=== PATIENT | female | born 1970 | race Caucasian/White ===

== ENCOUNTER 2018-01-07 16:06 | Emergency (ER) | payer MEDICARE, MEDICAID, SELFPAY ==
[2018-01-07 16:10] VITALS: BP 125/91; PULSE 89; RESP 16; TEMP 36.5; O2SAT 93
--- NOTE | 2018-01-07 16:28 | W.ED.GENAD ---
Discharge Plan Discharge Details Chief Complaint: EarProblem Clinical Impression: Actinic otitis externa of left ear Reason For Visit: LFT EAR Primary Care Provider: Thanh Rebolledo ED Provider: Cassius Still Disposition Patient Disposition: HOME Condition: Good Home Meds and New Rx's Prescriptions: Continue albuterol sulfate [Ventolin HFA] 8 GM HFA aerosol inhaler 2 puff Inhalation Q4H PRN RF: 0 norethindrone ac-eth estradiol 1 EACH tablet 1 ea PO HS RF: 0 ranitidine HCl 150 MG capsule 150 mg PO HS RF: 0 misc 1 ea UD DAILY Qty: 1 RF: 0 prochlorperazine maleate 5 MG tablet 5 mg PO Q8H PRN Qty: 30 RF: 0 cholecalciferol (vitamin D3) [Vitamin D3] 2,000 UNIT capsule 5,000 unit PO DAILY RF: 0 riboflavin (vitamin B2) [Vitamin B-2] 25 MG tablet 100 mg PO DAILY RF: 0 cyanocobalamin (vitamin B-12) [Vitamin B-12] 1,000 MCG tablet 1,000 mcg PO DAILY RF: 0 metformin [Glucophage] 1,000 MG tablet 1,000 mg PO BID RF: 0 chlorthalidone 25 MG tablet 25 mg PO DAILY RF: 0 amlodipine 5 MG tablet 5 mg PO HS RF: 0 Discharge Instructions Instructions: Otitis Externa (ED) Additional Instructions: Follow-up with regular doctor if not improved in 5 days time. Take Ciprodex drops twice daily for 7 days. Return for any acute concerns Medical Decision Making MDM Narrative Medical decision making narrative: 47-year-old female with evidence of left otitis externa. Will treat with Ciprodex drops twice daily for 7 days. Discussed with her home management as well as return precautions. She will follow-up with regular doctor if not improved in 5-7 days time Left ear pain: This is a 47-year-old female with 3 days of dull, achy, mild to moderate left ear pain is constant, worse with pressure on the external ear canal. She has not had fever, sore throat, sniffles, sneezes or cough. She has otherwise been well. Pain is nonradiating and without significant alleviating factors HPI - General Adult General Date/Time Provider Initiated Documentation: 01/07/18 16:09. Related Data Home Medications Medication Instructions Recorded Confirmed albuterol sulfate [Ventolin HFA] 2 puff INHALATION Q4H PRN puff 11/05/12 01/07/18 cholecalciferol (vitamin D3) 5,000 unit PO DAILY 07/08/14 01/07/18 [Vitamin D3] cyanocobalamin (vitamin B-12) 1,000 mcg PO DAILY 07/08/14 01/07/18 [Vitamin B-12] riboflavin (vitamin B2) [Vitamin 100 mg PO DAILY 07/08/14 01/07/18 B-2] norethindrone ac-eth estradiol 1 ea PO HS 11/16/16 01/07/18 ranitidine HCl 150 mg PO HS tab-cap 11/16/16 01/07/18 metformin [Glucophage] 1,000 mg PO BID 04/02/17 01/07/18 amlodipine 5 mg PO HS 05/10/17 01/07/18 chlorthalidone 25 mg PO DAILY 05/10/17 01/07/18 Allergies Allergy/AdvReac Type Severity Reaction Status Date / Time codeine AdvReac Mild NAUSEA/VOMI Unverified 01/07/18 16:17 TING General Stated Complaint: EarProblem TATIANNA: 5 Review of Systems Review of Systems 6 systems reviewed and otherwise negative PFSH Family History Other Cancer Diabetes Essential hypertension Medical History Anxiety Carpal tunnel syndrome Depression ITP (idiopathic thrombocytopenic purpura) MS (multiple sclerosis) Migraine Morbid obesity with BMI of 60.0-69.9, adult Obstructive sleep apnea Thrombocytopenia Vitamin D deficiency Social History Smoking/Tobacco Use Status: Former Tobacco Use Surgical History section Exam Const General: cooperative, healthy appearing and well developed [facility] Head: normal to inspection and normocephalic Ears: hearing grossly normal bilaterally and external ears abnormal (Left external ear canal with cobblestoning and appears to be small pimple at the superior aspect. Wax present but able to visualize the tympanic membrane.) Eyes General: appearance normal, both eyes and all related structures Resp Effort & Inspection: normal respiratory effort and able to speak in complete sentences Auscultation: clear to auscultation bilaterally Cardio Rate: regular rate Rhythm: regular rhythm Skin General skin exam: no rashes or lesions noted Psych Appearance: grossly normal Speech and Movement: speech and movement normal Course Vital Signs Temperature 36.5 C 01/07/18 16:10 Pulse 89 01/07/18 16:10 Respiratory Rate 16 01/07/18 16:10 Blood Pressure 125/91 H 01/07/18 16:10 Pulse Oximetry 93 L 01/07/18 16:10 Temperature 36.5 C 01/07/18 16:10 Pulse 89 01/07/18 16:10 Respiratory Rate 16 01/07/18 16:10 Blood Pressure 125/91 H 01/07/18 16:10 Pulse Oximetry 93 L 01/07/18 16:10
== END 2018-01-07 16:50 | disposition home or self-care (01) ==
LOC: ER 16:42
PROVIDERS: Emergency Provider Emergency Medicine; PCP Family Medicine
DX: H60.512 Acute actinic otitis externa, left ear (principal); E11.9 Type 2 diabetes mellitus without complications; Z79.84 Long term (current) use of oral hypoglycemic drugs; I10 Essential (primary) hypertension
CPT/HCPCS: 99283

== ENCOUNTER 2018-02-22 09:31 | Outpatient (CLI) | payer MEDICARE, MEDICAID, SELFPAY ==
[2018-02-22 10:08] LABS: Hemoglobin A1C 5.4 % (4.5-6.2)
== END 2018-02-22 09:51 ==
PROVIDERS: PCP Family Medicine; Visit Provider Family Medicine
DX: E11.9 Type 2 diabetes mellitus without complications (principal)
CPT/HCPCS: 36415; 83036

== ENCOUNTER 2018-06-25 17:19 | Outpatient (REF) | payer MEDICARE, MEDICAID, SELFPAY ==
[2018-06-25 20:26] LABS: HCT 44.5 % (36.0-46.0); HGB 14.6 g/dL (12.0-15.5); Mean Corp. HGB Concentration 32.8 g/dL (32.0-36.0); Mean Corpuscular Volume 82.3 fL (80-95); RBC 5.41 m/cumm (4.00-5.20); RBC Distribution Width 14.3 % (11.7-14.6)
[2018-06-25 20:43] LABS: COMMENT (LAB VIEW ONLY) 47.26 mg/dL; Microalb ug/mg Crea 13.1 ug/mg Cr
[2018-06-25 20:48] LABS: Anion Gap 11.9 mmol/L (3-11); BUN 16 mg/dL (7-18); CO2 27.1 mmol/L (21.0-32.0); CREATININE 0.89 mg/dL (0.55-1.02); Calcium 9.4 mg/dL (8.5-10.1); Chloride 104 mmol/L (98-107); FREE T4 1.02 ng/dL (0.76-1.46); Glucose 81 mg/dL (70-100); Potassium 3.8 mmol/L (3.5-5.1); Sodium 143 mmol/L (136-145); TSH (W/Ref FT4) 1.06 uIU/mL (0.358-3.74)
[2018-06-25 21:12] LABS: Platelet Count 108 x1000/uL (130-400)
== END 2018-06-25 17:39 ==
LOC: NCHCN 17:19
PROVIDERS: PCP Family Medicine; Visit Provider Family Medicine
DX: E11.9 Type 2 diabetes mellitus without complications (principal); R68.89 Other general symptoms and signs; I10 Essential (primary) hypertension; E21.3 Hyperparathyroidism, unspecified
CPT/HCPCS: 80048; 85027; 82043; 82570; 84439; 84443

== ENCOUNTER 2018-07-03 11:29 | Outpatient (CLI) | payer MEDICARE, MEDICAID, SELFPAY ==
[2018-07-03 12:45] LABS: Albumin 3.9 g/dL (3.4-5.0); Calcium 9.6 mg/dL (8.5-10.1)
[2018-07-04 11:40] LABS: Parathyroid Hormone,Intact 28 pg/ml (19-88)
[2018-07-05 05:03] LABS: Vitamin D 25 Total 78.6 ng/ml (30-100)
== END 2018-07-03 11:49 ==
PROVIDERS: PCP Family Medicine; Visit Provider Internal Medicine Endocrinology, Diabetes & Metabolism
DX: E83.52 Hypercalcemia (principal)
CPT/HCPCS: 36415; 82306; 82040; 82310; 83970

== ENCOUNTER → 2018-07-10 11:10 | Outpatient (BNVA) | payer MEDICARE, MEDICAID, SELFPAY | PROVIDERS: PCP Family Medicine; Visit Provider Psychiatry & Neurology Neurology | DX: G43.009 Migraine without aura, not intractable, without status migrainosus (principal); G35 Multiple sclerosis; E11.9 Type 2 diabetes mellitus without complications; Z79.84 Long term (current) use of oral hypoglycemic drugs | CPT/HCPCS: 99214 ==

== ENCOUNTER → 2019-01-14 09:12 | Outpatient (BNVA) | payer MEDICARE, MEDICAID, SELFPAY | PROVIDERS: PCP Family Medicine; Visit Provider Psychiatry & Neurology Neurology | DX: G43.009 Migraine without aura, not intractable, without status migrainosus (principal); G35 Multiple sclerosis; M79.671 Pain in right foot; M79.672 Pain in left foot | CPT/HCPCS: 99213 ==

== ENCOUNTER 2019-01-17 01:01 | Outpatient (CLI) | payer MEDICARE, MEDICAID, SELFPAY ==
--- NOTE | 2019-01-17 14:39 | DI.RAD_ITS ---
SYMPTOMS/DIAGNOSIS: PAIN, M79.673 RIGHT FOOT: Three views were obtained. There are small osteophytes at the sites of attachment of plantar fascia and Achilles tendon on the calcaneus. Minimal degenerative changes of the IP joints noted. No other significant bony abnormality seen. LEFT FOOT: Three views were obtained. There are small osteophytes at the sites of attachment of plantar fascia and Achilles tendon on the calcaneus. Minimal degenerative changes of the joints of the mid foot and the IP joints noted. No other bony abnormality seen.
== END 2019-01-17 01:21 ==
PROVIDERS: PCP Family Medicine; Visit Provider Family Medicine
DX: M79.671 Pain in right foot (principal); M79.672 Pain in left foot; M19.071 Primary osteoarthritis, right ankle and foot; M19.072 Primary osteoarthritis, left ankle and foot; M25.771 Osteophyte, right ankle; M25.772 Osteophyte, left ankle
CPT/HCPCS: 73630

== ENCOUNTER 2019-04-09 17:44 | Emergency (ER) | payer MEDICARE, MEDICAID, SELFPAY ==
[2019-04-09 17:47] VITALS: PULSE 110; RESP 18; TEMP 36.6; O2SAT 97
--- NOTE | 2019-04-09 17:49 | ED.GENADUL_ITS ---
Discharge Plan Disposition Patient Disposition: HOME Condition: Stable Discharge Details Chief Complaint: Allergic Clinical Impression: Drowsiness, Nausea, Medication reaction Primary Care Provider: Deepali Zuleta ED Provider: Susana Cunningham Home Meds and New Rx's Prescriptions: Continued metformin 1,000 mg tablet 1,000 mg PO BID RF: 0 albuterol sulfate [Ventolin HFA] 8 GM HFA aerosol inhaler 2 puff Inhalation Q4H PRN RF: 0 norethindrone ac-eth estradiol 1 EACH tablet 1 ea PO HS RF: 0 cholecalciferol (vitamin D3) [Vitamin D3] 2,000 UNIT capsule 5,000 unit PO DAILY RF: 0 Vitamin B-2 25 MG tablet 100 mg PO DAILY RF: 0 cyanocobalamin (vitamin B-12) [Vitamin B-12] 1,000 MCG tablet 1,000 mcg PO DAILY RF: 0 chlorthalidone 25 MG tablet 25 mg PO DAILY RF: 0 amlodipine 5 MG tablet 5 mg PO HS RF: 0 doxepin 25 mg Capsule 25 mg PO QHS RF: 0 Discontinued naltrexone 50 mg Tablet 50 mg PO DAILY RF: 0 bupropion HCl 100 mg Tablet Sustained-Release 12 Hr 100 mg PO BID RF: 0 No Action misc 1 ea UD DAILY Qty: 1 RF: 0 Discharge Instructions Instructions: Fatigue (ED) Additional Instructions: I would stop taking the naltrexone and bupropion as you have had adverse side effects today. You can also try taking only 1 of the medications tomorrow morning to see if the medicine is more tolerable. Call Dr. Zuleta's office tomorrow morning to discuss your symptoms and whether another medication could be started. Return to the emergency department if you develop any worsening or new concerning symptoms. Discharge Data Discharge Physician: Susana Cunningham Medical Decision Making 49-year-old female who started naltrexone and Wellbutrin this morning for mood and weight loss presents with nausea, facial flushing, and a feeling of like I am drunk today. Denies any other new exposures. She states she does not like this feeling and would prefer to not take these anymore. Vitals within normal limits on my exam. Afebrile. She appears nontoxic. Moving all extremities. Lungs clear. Abdomen nontender. No focal deficits. Review of these medications' adverse reactions include nausea, fatigue, somnolence, dizziness, etc. Discussed with patient that she could hold both of these medications, or decide to take only one tomorrow to see if she has similar side effects. She was given a dose of Zofran here for her nausea. She states she feels good to go home at this time. She was advised to call Dr. Zuleta' office tomorrow morning to discuss other medication choices and for reevaluation. She was advised to return here with any concerns. HPI General Mode of arrival: ambulatory . Date/Time Provider Initiated Documentation: 04/09/19 17:45 . Limitations to Documentation: no limitations . Information obtained by: patient . HPI Narrative: Pt is a 49yo F w/ a h/o obesi ty, anxiety, depression presents with nausea and drowsiness today after starting bupropion and naltrexone this morning. Patient states she took these medications for the first time early this morning and shortly afterwards has developed nausea, face feeling hot, and like I am drunk. She denies any other alcohol or drug use. She denies any other new medications. She denies fever, chest pain, shortness of breath, abdominal pain, vomiting. She states she started taking these medications for her mood and to help with weight loss which were recently prescribed by her primary care doctor Dr. Zuleta. Related Data Home Medications Medication Instructions Recorded Confirmed albuterol sulfate [Ventolin HFA] 2 puff INHALATION Q4H PRN puff 11/05/12 04/09/19 Vitamin B-2 100 mg PO DAILY 07/08/14 04/09/19 cholecalciferol (vitamin D3) 5,000 unit PO DAILY 07/08/14 04/09/19 [Vitamin D3] cyanocobalamin (vitamin B-12) 1,000 mcg PO DAILY 07/08/14 04/09/19 [Vitamin B-12] norethindrone ac-eth estradiol 1 ea PO HS 11/16/16 04/09/19 amlodipine 5 mg PO HS 05/10/17 04/09/19 chlorthalidone 25 mg PO DAILY 05/10/17 04/09/19 metformin 1,000 mg tablet 1,000 mg PO BID tab 01/14/19 04/09/19 doxepin 25 mg PO QHS 04/09/19 04/09/19 Allergies Allergy/AdvReac Type Severity Reaction Status Date / Time codeine AdvReac Mild NAUSEA/VOMI Unverified 01/14/19 09:23 TING General TATIANNA: 5 Review of Systems All systems reviewed & are unremarkable except as noted in HPI and below Constitutional Constitutional: Reports as per HPI, Denies chills and Denies fever(s) Eyes Eyes: Denies blurry vision ENT Ears, Nose, Mouth, and Throat: Denies dizziness, Denies sore throat and Denies throat swelling Cardiovascular Cardiovascular: Denies chest pain and Denies dyspnea Respiratory Respiratory: Denies cough and Denies dyspnea Gastrointestinal Gastrointestinal: Denies abdominal pain, Denies diarrhea, Reports nausea and Denies vomiting Genitourinary Genitourinary: Denies hematuria and Denies dysuria Musculoskeletal Musculoskeletal: Denies back pain and Denies numbness Integumentary/Breasts Skin/Breast: Denies lesions and Denies rash Neurologic Neurologic: Denies dizziness, Denies focal weakness and Denies numbness Allergic/Immunologic Allergic/Immunologic: Denies throat swelling [facility] Medical History Anxiety Carpal tunnel syndrome of right wrist (Acute 09/07/15) Depression Diabetes type 2, controlled (Acute) Eczema (Acute 06/10/13) Hyperparathyroidism (Acute) Primary hyperparathyroidism with an intrathyroidal parathyroid adenoma. ITP (idiopathic thrombocytopenic purpura) Migraine without aura and without status migrainosus, not intractable (Acute 11/13/17) Morbid obesity with BMI of 60.0-69.9, adult Multiple sclerosis (Acute 11/05/12) Obstructive sleep apnea Papillary thyroid carcinoma (Acute) Papillary thyroid cancer, found Jun 2017. Monitored by [facility] Endo with yearly US. Vitamin D deficiency Surgical History S/P section (Acute) S/P partial thyroidectomy (Acute) R partial. Jun 2017. Family History Mother Diabetes Essential hypertension Other Cancer Social History Smoking/Tobacco Use Status: Former Tobacco Use Quit Date: 11/05/16 Pack-years: 20 Alcohol Intake: never Drug use: Never Household members: spouse current occupation: Disabled. Do you feel safe at home: Yes Do you feel safe in your relationship?: Yes Exam Const General: cooperative, healthy appearing and no acute distress HENMT Head: normal to inspection Face and sinus: normal facial exam Eyes General: appearance normal, both eyes and all related structures EOM: EOM intact bilaterally Neck Neck: normal visual inspection and No submandibular swelling Lymphatic: no lymphadenopathy noted Chest Chest: normal inspection of the chest and no tenderness Resp Effort & Inspection: normal respiratory effort and able to speak in complete sentences Auscultation: clear to auscultation bilaterally Cardio Rate: regular rate Rhythm: regular rhythm GI Inspection: normal to inspection Palpation: soft, not firm, not rigid and nontender Auscultation: normal bowel sounds Skin General skin exam: no rashes or lesions noted Neuro General: alert, awake and oriented x3 Cognition: normal cognition Speech: speech normal Motor: muscle tone normal throughout Sensory Exam: no sensory deficits noted Extrem General: normal to inspection, full ROM, normal capillary refill, no calf tenderness bilaterally and no edema Psych Appearance: grossly normal Mental Status: mental status grossly normal Speech and Movement: speech and movement normal Affect: normal affect
[2019-04-09 18:04] VITALS: PULSE 94; RESP 22; O2SAT 98
[2019-04-09 18:10] VITALS: PULSE 92; RESP 22; O2SAT 97
[2019-04-09 18:20] VITALS: PULSE 91; RESP 20; O2SAT 97
[2019-04-09 18:30] VITALS: PULSE 89; RESP 21; O2SAT 97
[2019-04-09] MEDS: Ondansetron O.D.T. 4 MG TABEF PO (18:32)
== END 2019-04-09 18:40 | disposition home or self-care (01) ==
PROVIDERS: Emergency Provider Physician Assistant; PCP Family Medicine
DX: R40.0 Somnolence (principal); R11.0 Nausea; R23.2 Flushing; T43.295A Adverse effect of other antidepressants, initial encounter; T50.7X5A Adverse effect of analeptics and opioid receptor antagonists, initial encounter; F41.8 Other specified anxiety disorders; G35 Multiple sclerosis; E11.9 Type 2 diabetes mellitus without complications; Z79.84 Long term (current) use of oral hypoglycemic drugs; E66.01 Morbid (severe) obesity due to excess calories; Z68.44 Body mass index [BMI] 60.0-69.9, adult
CPT/HCPCS: 99283

== ENCOUNTER → 2019-07-15 09:36 | Outpatient (BNVA) | payer MEDICARE, MEDICAID, SELFPAY | PROVIDERS: PCP Family Medicine; Referring Provider Family Medicine; Visit Provider Psychiatry & Neurology Neurology | DX: G43.009 Migraine without aura, not intractable, without status migrainosus (principal); G35 Multiple sclerosis; M54.5 Low back pain; G89.29 Other chronic pain | CPT/HCPCS: 99213 ==

== ENCOUNTER → 2019-10-09 10:03 | Outpatient (BNVA) | payer MEDICARE, MEDICAID, SELFPAY | PROVIDERS: PCP Family Medicine; Referring Provider Family Medicine; Visit Provider Orthopaedic Surgery | DX: M75.21 Bicipital tendinitis, right shoulder (principal); E11.9 Type 2 diabetes mellitus without complications | CPT/HCPCS: 99213 ==

== ENCOUNTER 2019-11-09 19:57 | Emergency (ER) | payer MEDICARE, MEDICAID, SELFPAY ==
--- NOTE | 2019-11-09 19:58 | ED.GENADUL_ITS ---
Discharge Plan Disposition Patient Disposition: HOME Condition: Good Discharge Details Chief Complaint: RashLesion Clinical Impression: Petechial rash, Hypokalemia Primary Care Provider: Deepali Zuleta ED Provider: Angelina Guerrier Home Meds and New Rx's Prescriptions: Continued metformin 1,000 mg tablet 1,000 mg PO BID RF: 0 albuterol sulfate [Ventolin HFA] 8 GM HFA aerosol inhaler 2 puff Inhalation Q4H PRN RF: 0 norethindrone ac-eth estradiol 1 EACH tablet 1 ea PO HS RF: 0 misc 1 ea UD DAILY Qty: 1 RF: 0 cholecalciferol (vitamin D3) [Vitamin D3] 2,000 UNIT capsule 5,000 unit PO DAILY RF: 0 Vitamin B-2 25 MG tablet 100 mg PO DAILY RF: 0 cyanocobalamin (vitamin B-12) [Vitamin B-12] 1,000 MCG tablet 1,000 mcg PO DAILY RF: 0 chlorthalidone 25 MG tablet 25 mg PO DAILY RF: 0 amlodipine 5 MG tablet 5 mg PO HS RF: 0 amitriptyline 10 mg tablet 10 mg PO HS MDD 20 MG RF: 0 Discharge Instructions Instructions: Hypokalemia (ED), Purpura (ED) Additional Instructions: No rash is most concerning for petechial rash. This typically goes along with liver dysfunction. However, your labs actually look surprisingly good. You continue to have an elevated white count as we discussed with this is downtr ending. Is not consistent with an allergic reaction. Please continue with your medications as previously prescribed. Please follow-up with primary care next week for reevaluation. If you develop fever/chills, pain, spreading of the rash, difficulty breathing or other new/worsening symptom please seek care urgently once again. Please look further at your footwear as this may be associated with pressure applied to the top of your foot. Referrals: Deepali Zuleta MD [Primary Care Provider] - Medical Decision Making Patient is a 49-year-old female past medical history of chronic back pain, migraines, MS, presenting today for rash of bilateral dorsal feet. She reports noticing this when she was getting ready for bed tonight. She took her pressures and saw rash. Denies any trauma. States that she is wearing wearing a loose pair of sneakers since then. No rash elsewhere. States that she did begin amitriptyline few days ago and is concerned this may be a sign of reaction. Denies any shortness of breath, wheezing, itching. No GI change. On exam, patient appears nontoxic. She has an obese female. She is noted to be slightly tachycardic at 107 and hypertensive with a blood pressure 169/98. She has a non-blanchable petechial rash and very isolated area on the bilateral dorsal feet. This appears more consistent with pressure applied over this area. However, I did review the potential adverse reactions of amitr iptyline and liver dysfunction is in the list. While 3 days would be fairly quick for onset, I do feel that screening baseline labs given the petechial rash would be appropriate. Discussed this plan with the patient who is in agreement. I not see any evidence of allergic reaction, says not consistent urticarial rash. She is appearing otherwise well. No jaundice. Labs reviewed. Patient has leukocytosis with a white count of 13. This is downtrending from 14.8 last month. Patient's platelet count is low at 104 but this is baseline for her. Her potassium is low at 3.2, will replenish this orally. No abnormalities on coags or liver function testing. Discussed these findings with the patient. Advised that her rash at this point is more consistent with pressure being applied to this area. It is not consistent with allergic reaction which is patient's primary concern. I advised that she continue with medications as previously prescribed. I did advise follow-up with primary care next week for reevaluation. She was given return precautions. All of her questions and concerns were addressed and she is in agreement this plan. [facility] General Mode of arrival: ambulatory . Date/Time Provider Initiated Documentation: 11/09/19 19:58 . Limitations to Documentation: no limitations . Information obtained by: patient and RN notes reviewed . History of Present Illness 49 year old F presents to the emergency department with the chief complaint of rash to bilateral feet, described as mild, Quality is described as other (denies any sensation associated with the rash), and is localized to the left, right and lower extremity. Patient reports no radiation. Patient started experiencing this minute(s) (noticed when getting ready for bed this evening) and it has been constant. No relieving factors improve symptom(s), No exacerbating factors reported . Patient notes no other symptoms.. Patient did receive the following treatments prior to arrival, none Related Data Home Medications Medication Instructions Recorded Confirmed albuterol sulfate [Ventolin HFA] 2 puff INHALATION Q4H PRN puff 11/05/12 11/09/19 Vitamin B-2 100 mg PO DAILY 07/08/14 11/09/19 cholecalciferol (vitamin D3) 5,000 unit PO DAILY 07/08/14 11/09/19 [Vitamin D3] cyanocobalamin (vitamin B-12) 1,000 mcg PO DAILY 07/08/14 11/09/19 [Vitamin B-12] norethindrone ac-eth estradiol 1 ea PO HS 11/16/16 11/09/19 amlodipine 5 mg PO HS 05/10/17 11/09/19 chlorthalidone 25 mg PO DAILY 05/10/17 11/09/19 metformin 1,000 mg tablet 1,000 mg PO BID tab 01/14/19 11/09/19 amitriptyline 10 mg PO HS MDD 20 MG 11/09/19 11/09/19 Allergies Allergy/AdvReac Type Severity Reaction Status Date / Time codeine AdvReac Mild NAUSEA/VOMI Unverified 11/09/19 20:01 TING General TATIANNA: 3 Review of Systems Constitutional Constitutional: Reports as per HPI, Denies chills and Denies fever(s) Musculoskeletal Musculoskeletal: Reports as per HPI Integumentary/Breasts Skin/Breast: Reports as per HPI Neurologic Neurologic: Reports as per HPI, Denies sensory deficit and Denies paresthesias [facility] Medical History Anxiety Biceps tendinitis of right upper extremity (Acute) Carpal tunnel syndrome of right wrist (Acute 09/07/15) Chronic low back pain (Acute) Depression Diabetes type 2, controlled (Acute) Eczema (Acute 06/10/13) Hyperparathyroidism (Acute) Primary hyperparathyroidism with an intrathyroidal parathyroid adenoma. ITP (idiopathic thrombocytopenic purpura) Migraine without aura and without status migrainosus, not intractable (Acute 11/13/17) Morbid obesity with BMI of 60.0-69.9, adult Multiple sclerosis (Acute 11/05/12) Obstructive sleep apnea Papillary thyroid carcinoma (Acute) Papillary thyroid cancer, found Jun 2017. Monitored by [facility] Endo with yearly US. Vitamin D deficiency Surgical History S/P section (Acute) S/P partial thyroidectomy (Acute) R partial. Jun 2017. Social History Smoking/Tobacco Use Status: Former Tobacco Use Quit Date: 11/05/16 Pack-years: 20 Alcohol Intake: never Drug use: Never Household members: spouse current occupation: Disabled. Current gender identity: male Do you feel safe at home: Yes Do you feel safe in your relationship?: Yes Exam Const General: cooperative, healthy appearing, comfortable, no acute distress and well developed Nutritional Appearance: well nourished and obese Orientation: alert and awake Resp Effort & Inspection: normal respiratory effort, able to speak in complete sentences and no respiratory distress Cardio Rate: regular rate Rhythm: regular rhythm Skin Rashes: rashes noted (bilateral lower feet) Neuro General: patient alert and patient awake Cognition: normal cognition Speech: speech normal Gait: normal gait Sensory Exam: no sensory deficits noted Extrem Ankle/foot/toe images: 1. 2. Bilateral petechial rash no very isolated area in the dorsal aspect of bilateral feet. This is non-blanchable. It is not raised. Nontender. Brisk capillary refill. Psych Appearance: grossly normal and well kempt Mental Status: mental status grossly normal Speech and Movement: speech and movement normal
[2019-11-09 20:05] VITALS: BP 169/98; PULSE 107; RESP 20; TEMP 37.3; O2SAT 97
[2019-11-09 21:05] LABS: HCT 43.7 % (36.0-46.0); HGB 14.4 g/dL (12.0-15.5); Mean Corpuscular Hemoglobin 26.9 pg (27.0-33.0); Mean Corpuscular Volume 81.7 fL (80-95); Mean Platelet Volume 13.3 fL (8.0-11.0); Platelet Count 104 x1000/uL (130-400); RBC 5.35 m/cumm (4.00-5.20); RBC Distribution Width 14.1 % (11.7-14.6); White Blood Cell Count 13.21 k/cumm (4.4-10.8)
[2019-11-09 21:17] LABS: PTT Activated 24.8 sec (21.0-31.4); Prothrombin Time 9.8 sec (9.3-11.0)
[2019-11-09 21:19] LABS: ALT 19 U/L (14-59); AST 10 U/L (15-37); Albumin 3.5 g/dL (3.4-5.0); Alkaline Phosphatase 85 U/L (46-116); BUN 11 mg/dL (7-18); Bilirubin, Total 0.2 mg/dL (0.2-1.0); CREATININE 1.02 mg/dL (0.55-1.02); Calcium 9.1 mg/dL (8.5-10.1); Chloride 103 mmol/L (98-107); Estimated GFR 57.84 (mL/min/1.73m2); Glucose 124 mg/dL (74-106); Potassium 3.2 mmol/L (3.5-5.1); Sodium 140 mmol/L (136-145); Total Protein 7.9 g/dL (6.4-8.2)
[2019-11-09] MEDS: POTASSIUM CHLORIDE 20 MEQ, POTASSIUM CHLORIDE 10 MEQ 30 MEQ PO (21:40)
== END 2019-11-09 21:45 | disposition home or self-care (01) ==
PROVIDERS: Emergency Provider Physician Assistant; PCP Family Medicine
DX: R42 Dizziness and giddiness (principal); E87.6 Hypokalemia; E11.9 Type 2 diabetes mellitus without complications; Z79.84 Long term (current) use of oral hypoglycemic drugs; G35 Multiple sclerosis; D69.3 Immune thrombocytopenic purpura
CPT/HCPCS: 36415; 80053; 85027; 99283; 85610; 85730

== ENCOUNTER → 2019-11-27 08:47 | Outpatient (BNVA) | payer MEDICARE, MEDICAID, SELFPAY | PROVIDERS: PCP Family Medicine; Referring Provider Family Medicine; Visit Provider Orthopaedic Surgery | DX: M75.21 Bicipital tendinitis, right shoulder (principal); E66.01 Morbid (severe) obesity due to excess calories; Z68.44 Body mass index [BMI] 60.0-69.9, adult | CPT/HCPCS: 99213 ==

== ENCOUNTER 2019-11-27 21:42 | Outpatient (REF) | payer MEDICARE, MEDICAID, SELFPAY ==
[2019-11-27 20:51] LABS: Abs Immature Grans 0.05 k/cumm (0.0-0.09); Absolute Eosinophil Count 0.14 k/cumm (0.0-0.7); Absolute Lymphocyte Count 1.68 k/cumm (1.2-3.4); Absolute Monocyte Count 0.74 k/cumm (0.11-0.7); Basophils % 0.1; HCT 42.4 % (36.0-46.0); Immature Grans % 0.4 %; Lymphocytes % 11.8; Mean Corpuscular Hemoglobin 26.7 pg (27.0-33.0); Mean Corpuscular Volume 80.8 fL (80-95); Monocytes % 5.2; Neutrophils % 81.5; RBC 5.25 m/cumm (4.00-5.20); RBC Distribution Width 14.1 % (11.7-14.6); White Blood Cell Count 14.27 k/cumm (4.4-10.8)
[2019-11-27 20:58] LABS: Anion Gap 13.3 mmol/L (3-11); BUN 15 mg/dL (7-18); CO2 23.7 mmol/L (21.0-32.0); CREATININE 0.83 mg/dL (0.55-1.02); Calcium 9.2 mg/dL (8.5-10.1); Chloride 104 mmol/L (98-107); Glucose 126 mg/dL (74-106); Potassium 3.6 mmol/L (3.5-5.1); Sodium 141 mmol/L (136-145)
[2019-11-27 21:09] LABS: Absolute Basophil Count 0.01 k/cumm (0.0-0.2); Absolute Neutrophil Count 11.63 k/cumm (1.2-6.7)
[2019-11-27 21:10] LABS: Mean Platelet Volume 15.6 fL (8.0-11.0)
[2019-11-27 21:12] LABS: Platelet Count 102 x1000/uL (130-400)
== END 2019-11-27 22:02 ==
LOC: NCHCN 21:42
PROVIDERS: PCP Family Medicine; Visit Provider Family Medicine
DX: E87.6 Hypokalemia (principal); D72.829 Elevated white blood cell count, unspecified
CPT/HCPCS: 80048; 85025

== ENCOUNTER → 2020-01-08 08:54 | Outpatient (BNVA) | payer MEDICARE, MEDICAID, SELFPAY | PROVIDERS: PCP Family Medicine; Visit Provider Orthopaedic Surgery | DX: M75.21 Bicipital tendinitis, right shoulder (principal); E11.9 Type 2 diabetes mellitus without complications | CPT/HCPCS: 99213 ==

== ENCOUNTER 2020-01-09 01:02 | Outpatient (CLI) | payer MEDICARE, MEDICAID, SELFPAY ==
--- NOTE | 2020-01-09 | DI.US_ITS ---
EXAM: US LOWER EXTREMITY VENOUS RT CLINICAL HISTORY: CALF PAIN RT, M79.661, OBESITY, SEDENTARY DUE TO KNEE PAIN, HIGH RISK FOR TECHNIQUE: Right lower extremity venous ultrasound performed using grayscale, color-flow, and spectr al Doppler analysis. COMPARISON: No exams were available for comparison FINDINGS: The right common femoral, femoral and popliteal veins demonstrate normal compressibility, augmentatio n, and color Doppler. The posterior tibial veins are patent. The saphenofemoral junction is unremark able. There is no evidence of a Rose cyst. The soft tissues are unremarkable. IMPRESSION: No DVT. DATA REPOSITORY:
== END 2020-01-09 01:22 ==
PROVIDERS: PCP Family Medicine; Visit Provider Family Medicine
DX: M79.661 Pain in right lower leg (principal)
CPT/HCPCS: 93971

== ENCOUNTER → 2020-01-14 08:30 | Outpatient (BNVA) | payer MEDICARE, MEDICAID, SELFPAY | PROVIDERS: PCP Family Medicine; Referring Provider Family Medicine; Visit Provider Psychiatry & Neurology Neurology | DX: G43.009 Migraine without aura, not intractable, without status migrainosus (principal); M54.5 Low back pain; G89.29 Other chronic pain; G35 Multiple sclerosis; E66.01 Morbid (severe) obesity due to excess calories; Z68.44 Body mass index [BMI] 60.0-69.9, adult; E11.9 Type 2 diabetes mellitus without complications | CPT/HCPCS: 99213 ==

== ENCOUNTER → 2020-02-19 08:54 | Outpatient (BNVA) | payer MEDICARE, MEDICAID, SELFPAY | PROVIDERS: PCP Family Medicine; Visit Provider Orthopaedic Surgery | DX: M75.21 Bicipital tendinitis, right shoulder (principal); E11.9 Type 2 diabetes mellitus without complications; Z79.84 Long term (current) use of oral hypoglycemic drugs | CPT/HCPCS: 99213 ==

== ENCOUNTER → 2020-03-18 09:09 | Outpatient (BNVA) | payer MEDICARE, MEDICAID, SELFPAY | PROVIDERS: PCP Family Medicine; Referring Provider Family Medicine; Visit Provider Orthopaedic Surgery | DX: M75.21 Bicipital tendinitis, right shoulder (principal); E11.9 Type 2 diabetes mellitus without complications; Z79.84 Long term (current) use of oral hypoglycemic drugs | CPT/HCPCS: 99212 ==

== ENCOUNTER 2020-04-08 16:03 | Outpatient (REF) | payer MEDICARE, MEDICAID, SELFPAY ==
[2020-04-11 09:17] LABS: COVID-19 RT-PCR UVMMC Result Negative (Negative)
== END 2020-04-08 16:23 ==
LOC: NCHCN 16:03
PROVIDERS: PCP Family Medicine; Visit Provider Physician Assistant
DX: Z20.828 Contact with and (suspected) exposure to other viral communicable diseases (principal)
CPT/HCPCS: U0003

== ENCOUNTER 2020-04-16 08:01 | Outpatient (REF) | payer MEDICARE, MEDICAID, SELFPAY ==
[2020-04-16 19:07] LABS: Hemoglobin A1C 5.7 % (<5.7)
[2020-04-16 19:10] LABS: Anion Gap 11.5 mmol/L (3-11); BUN 16 mg/dL (7-18); CO2 23.5 mmol/L (21.0-32.0); CREATININE 0.97 mg/dL (0.55-1.02); Calcium 9.1 mg/dL (8.5-10.1); Chloride 104 mmol/L (98-107); Glucose 117 mg/dL (74-106); Potassium 3.7 mmol/L (3.5-5.1); Sodium 139 mmol/L (136-145)
[2020-04-16 20:06] LABS: Vitamin D 25 Total 52.6 ng/ml (30-100)
== END 2020-04-16 08:21 ==
LOC: NCHCN 08:01
PROVIDERS: PCP Family Medicine; Visit Provider Family Medicine
DX: E87.6 Hypokalemia (principal); R73.03 Prediabetes; E55.9 Vitamin D deficiency, unspecified
CPT/HCPCS: 80048; 82306; 83036

== ENCOUNTER 2020-05-07 12:45 | Outpatient (REF) | payer MEDICARE, MEDICAID, SELFPAY ==
[2020-05-07 14:52] LABS: Vitamin B12 479 pg/mL (193-986)
== END 2020-05-07 13:05 ==
LOC: NCHCN 12:45
PROVIDERS: PCP Family Medicine; Visit Provider Family Medicine
DX: E53.8 Deficiency of other specified B group vitamins (principal)
CPT/HCPCS: 82607

== ENCOUNTER → 2020-08-12 07:40 | Outpatient (BNVA) | payer MEDICARE, MEDICAID, SELFPAY | PROVIDERS: PCP Family Medicine; Referring Provider Family Medicine; Visit Provider Psychiatry & Neurology Neurology | DX: G35 Multiple sclerosis (principal); G43.009 Migraine without aura, not intractable, without status migrainosus; M54.5 Low back pain; G89.29 Other chronic pain | CPT/HCPCS: 99442 ==

== ENCOUNTER 2020-11-11 11:14 | Outpatient (REF) | payer MEDICARE, MEDICAID, SELFPAY ==
--- NOTE | 2020-11-11 10:15 | PAPFT_PTH ---
PATIENT: Kat Vanegas LOC: [facility] U#:[id number] AGE/SX: 50/F ROOM: RE11/11/[address]: Mary Moody DO : 1970 BED: DIS: 11/11/2020 SPEC #: [id number] RECD: 11/11/20 11:22 STATUS: SAVANAH REQ #: [id number] LYNDA: 11/11/20 10:[address]: Mary Moody DEPT: [facility] Cytology RECD BY: Lalita Rivero ENTERED: 11/11/20 11:23 SP TYPE: PAPFT OTHR DR: Deepali Zuleta Tissues: 1 - CX/ENDOCX FOR PAP SMEARS Procedures: PAP THIN PREP/UVM Screening HPV DNA PROBE Comments: [id number]
== END 2020-11-11 11:15 | disposition home or self-care (01) ==
LOC: LBN 11:14
PROVIDERS: PCP Family Medicine; Visit Provider Obstetrics & Gynecology
DX: Z12.4 Encounter for screening for malignant neoplasm of cervix (principal); Z11.51 Encounter for screening for human papillomavirus (HPV); Z01.419 Encounter for gynecological examination (general) (routine) without abnormal findings
CPT/HCPCS: 88142; 87624

== ENCOUNTER → 2020-11-19 09:28 | Outpatient (BNVA) | payer MEDICARE, MEDICAID, SELFPAY | PROVIDERS: PCP Family Medicine; Referring Provider Family Medicine; Visit Provider Student in an Organized Health Care Education/Training Program | DX: M25.561 Pain in right knee (principal); D69.6 Thrombocytopenia, unspecified; M17.11 Unilateral primary osteoarthritis, right knee; E11.9 Type 2 diabetes mellitus without complications | CPT/HCPCS: 99214 ==

== ENCOUNTER 2020-11-19 09:54 | Outpatient (CLI) | payer MEDICARE, MEDICAID, SELFPAY ==
--- NOTE | 2020-11-19 09:45 | DI.RAD_ITS ---
Exam(s) XR KNEE RT 4V AP,LAT,RUPAL,PAT EXAM: XR KNEE RT 4V AP,LAT,RUPAL,PAT CLINICAL HISTORY: rt knee pain. TECHNIQUE: 2D digital imaging was performed. COMPARISON: CR RIGHT KNEE LIMITED 1 OR 2 VIEW from 05/30/2017 FINDINGS: There has been significant progression of degenerative change in the right knee when compared to 2018 . Presently there is significant narrowing of the medial compartment evident as well as marginal ost eophytes. Lateral compartment maintains normal height. Some mild degenerative changes noted in the medial aspect of the patellofemoral compartment. There appears to be a small joint effusion. No oss eous lesions. IMPRESSION: Significant progression of degenerative change when compared to May 2017. This is most prominent in the medial compartment. DATA REPOSITORY: RADIATION DOSE DELIVERED:
== END 2020-11-19 09:55 | disposition home or self-care (01) ==
LOC: DIORS 09:54
PROVIDERS: PCP Family Medicine; Referring Provider Family Medicine; Visit Provider Physician Assistant Surgical
DX: M17.11 Unilateral primary osteoarthritis, right knee (principal)
CPT/HCPCS: 99214; 73564

== ENCOUNTER 2020-12-03 04:10 | Outpatient (CLI) | payer MEDICARE, MEDICAID, SELFPAY ==
[2020-12-03 11:54] LABS: HGB 14.4 g/dL (11.2-15.7); MCH 26.9 pg (27.0-33.0); Platelet Count 141 10^3/uL (130-400); RBC 5.36 10^6/uL (3.93-5.22); RDW 14.1 % (11.7-14.6); RDW-SD 42.7 fL; WBC 13.59 10^3/uL (4.4-10.8)
== END 2020-12-03 04:11 | disposition home or self-care (01) ==
PROVIDERS: PCP Family Medicine; Visit Provider Physician Assistant Surgical
DX: D69.6 Thrombocytopenia, unspecified (principal)
CPT/HCPCS: 36415; 85027

== ENCOUNTER 2020-12-09 20:39 | Outpatient (REF) | payer MEDICARE, MEDICAID, SELFPAY ==
[2020-12-10 12:26] LABS: COVID-19 RT-PCR UVMMC Result Negative (Negative)
== END 2020-12-09 20:40 | disposition home or self-care (01) ==
LOC: NCHCN 20:39
PROVIDERS: PCP Family Medicine; Visit Provider Family Medicine
DX: Z20.822 Contact with and (suspected) exposure to COVID-19 (principal); J06.9 Acute upper respiratory infection, unspecified
CPT/HCPCS: U0003; U0005

== ENCOUNTER → 2021-02-10 14:25 | Outpatient (BNVA) | payer MEDICARE, MEDICAID, SELFPAY | PROVIDERS: PCP Family Medicine; Referring Provider Family Medicine; Visit Provider Psychiatry & Neurology Neurology | DX: G35 Multiple sclerosis (principal); G43.009 Migraine without aura, not intractable, without status migrainosus; G89.29 Other chronic pain; E11.42 Type 2 diabetes mellitus with diabetic polyneuropathy; M54.59 Other low back pain | CPT/HCPCS: 99213 ==

== ENCOUNTER → 2021-02-18 09:52 | Outpatient (BNVA) | payer MEDICARE, MEDICAID, SELFPAY | PROVIDERS: PCP Family Medicine; Visit Provider Student in an Organized Health Care Education/Training Program | DX: M17.11 Unilateral primary osteoarthritis, right knee (principal) | CPT/HCPCS: 99213 ==

== ENCOUNTER → 2021-06-28 14:26 | Outpatient (BNVA) | payer MEDICARE, MEDICAID, SELFPAY | PROVIDERS: PCP Family Medicine; Referring Provider Family Medicine; Visit Provider Psychiatry & Neurology Neurology | DX: E11.42 Type 2 diabetes mellitus with diabetic polyneuropathy (principal); G35 Multiple sclerosis; G43.009 Migraine without aura, not intractable, without status migrainosus; G89.29 Other chronic pain | CPT/HCPCS: 99215 ==

== ENCOUNTER 2021-08-03 19:36 | Emergency (ER) | payer MEDICARE, MEDICAID, SELFPAY ==
[2021-08-03] VITALS (11 sets, daily range): BP systolic 122–173; BP diastolic 61–88; PULSE 93–130; RESP 20; TEMP 37; O2SAT 91–99
--- NOTE | 2021-08-03 19:30 | DI.CT_ITS ---
Exam(s) CT ABDOMEN PELVIS W EXAM: CT ABDOMEN PELVIS W INDICATION: LLQ pain. COMPARISON: No exams were available for comparison TECHNIQUE: FINDINGS: CT examination of the abdomen and pelvis was performed with a bolus infusion of 100 cc of Omnipaque 3 50. Images obtained through the lung bases are unremarkable. The liver is unremarkable in appearance. Gallbladder and bile ducts are CT normal. Pancreas appears normal. Spleen is unremarkable in appearance. Adrenals appear normal. The kidneys are unremarkable with no evidence of hydronephrosis, nephrolithiasis, or renal mass.. Ur inary bladder unremarkable. Abdominal aorta is of normal diameter and no major vascular abnormality is seen. No abdominal wall hernia. No abdominal or pelvic adenopathy. [employer]ERK structures appear intact. Appendix is normal. There is a question of mild Sangeetha colonic fat edema adjacent to proximal sigmoid colon, question early diverticulitis. No abscess or obstruction.. IMPRESSION: Possible early diverticulitis, proximal sigmoid colon period no other significant findings.. RADIATION DOSE DELIVERED: 2,305.06mGy.cm Total DLP 2,305.06mGy.cm Total DLP !Error CTDIvol RADIATION OPTIMIZATION: All CT scans at this facility use at least one of these dose optimization te chniques: automated exposure control; mA and/or kV adjustment per patient size (includes targeted exa ms where dose is matched to clinical indication); or iterative reconstruction.
[2021-08-03] MEDS: Ondansetron 4 MG/2 ML VIAL IVP (20:03)
[2021-08-03] MEDS: HYDROmorphone 2 MG/ML VIAL 1 MG IVP (20:03)
[2021-08-03] MEDS: Normal Saline 1,000 ML 1000 ML IV (20:04)
[2021-08-03 20:06] LABS: Abs Immature Grans 0.15 10^3/uL (0.0-0.06); Absolute Neutrophil Count 12.45 10^3/uL (1.2-6.7); Basophils % 0.4; Eosinophils % 0.6; HCT 48.5 % (36.0-46.0); HGB 15.4 g/dL (11.2-15.7); Immature Grans % 0.9; Lymphocytes % 15.4; MCH 26.5 pg (27.0-33.0); MCHC 31.8 % (32.0-36.0); MCV 83.3 fL (80-95); Monocytes % 5.6; Neutrophils % 77.1; Nucleated RBC 0 %; Platelet Count 113 10^3/uL (130-400); RBC 5.82 10^6/uL (3.93-5.22); RDW 14.2 % (11.7-14.6); RDW-SD 42.8 fL; WBC 16.15 10^3/uL (4.4-10.8)
[2021-08-03 20:09] LABS: Absolute Basophil Count 0.06 10^3/uL (0.0-0.2); Absolute Lymphocyte Count 2.49 10^3/uL (1.2-3.4)
[2021-08-03 20:17] LABS: Lipase 127 U/L (73-393)
[2021-08-03 20:20] LABS: ALT 29 U/L (14-59); AST 16 U/L (15-37); Albumin 3.6 g/dL (3.4-5.0); Alkaline Phosphatase 97 U/L (46-116); Anion Gap 11.5 mmol/L (3-11); BUN 15 mg/dL (7-18); Bilirubin, Total 0.3 mg/dL (0.2-1.0); CO2 24.5 mmol/L (21.0-32.0); CREATININE 1.1 mg/dL (0.55-1.02); Calcium 9.4 mg/dL (8.5-10.1); Chloride 104 mmol/L (98-107); Estimated GFR 52.58 (mL/min/1.73m2); Glucose 152 mg/dL (74-106); Magnesium 1.7 mg/dL (1.8-2.4); Potassium 3.5 mmol/L (3.5-5.1); Sodium 140 mmol/L (136-145); Total Protein 8.6 g/dL (6.4-8.2)
[2021-08-03] MEDS: Omnipaque 350 MG/ML 100 ML BTL IJ (20:38)
[2021-08-03] MEDS: Normal Saline Flush 10 ML SYR IVP (20:40)
--- NOTE | 2021-08-03 21:29 | DI.VRAD_ITS ---
PROCEDURE INFORMATION: Exam: CT Abdomen And Pelvis With Contrast Exam date and time: 08/03/2021 8:17 PM Age: 51 years old Clinical indication: Abdominal pain; Localized; Left lower quadrant (llq); Prior surgery; Surgery date: 6+ months; Surgery type: ; Patient HX: Llq pain TECHNIQUE: Imaging protocol: Computed tomography of the abdomen and pelvis with contrast. Radiation optimization: All CT scans at this facility use at least one of these dose optimization techniques: automated exposure control; mA and/or kV adjustment per patient size (includes targeted exams where dose is matched to clinical indication); or iterative reconstruction. COMPARISON: CR PELVIS AP 05/30/2017 9:51 AM FINDINGS: Lungs: The visualized portions of the lung bases are normal. Liver: Normal. No mass. Gallbladder and bile ducts: Normal. No calcified stones. No ductal dilation. Pancreas: Normal. No ductal dilation. Spleen: Normal. No splenomegaly. Adrenal glands: Normal. No mass. Kidneys and ureters: Normal. No hydronephrosis. Stomach and bowel: See Intraperitoneal space finding. Appendix: No evidence of appendicitis. Intraperitoneal space: Minimal pericolonic mesenteric fat stranding surrounding a short segment of proximal sigmoid colon (series 6, image 65), may be compatible with very early colitis/diverticulitis. Vasculature: Unremarkable. No abdominal aortic aneurysm. Lymph nodes: Unremarkable. No enlarged lymph nodes. Urinary bladder: Unremarkable as visualized. Reproductive: Unremarkable as visualized. Bones/joints: Unremarkable. No acute fracture. Soft tissues: Unremarkable. IMPRESSION: Minimal pericolonic mesenteric fat stranding surrounding a short segment of proximal sigmoid colon (series 6, image 65), may be compatible with very early colitis/diverticulitis. Dictated and Authenticated by: Red De Dios MD. Ordering:BUCKY Garnett MD
--- NOTE | 2021-08-03 21:44 | W.ED.GENAD ---
Discharge Plan Disposition Patient Disposition: HOME Condition: Stable Discharge Details Clinical Impression: Diverticulitis Primary Care Provider: Deepali Zuleta ED Provider: Tamir Peña Home Meds and New Rx's Prescriptions: New ciprofloxacin HCl [Cipro] 500 mg tablet 500 mg PO BID Qty: 14 0RF metronidazole 500 mg tablet 500 mg PO TID 7 Days Qty: 21 0RF No Action ascorbic acid (vitamin C) 1,000 mg tablet 1 g PO DAILY 0RF pyridoxine (vitamin B6) 100 mg tablet 100 mg PO DAILY 0RF riboflavin (vitamin B2) 100 mg tablet 100 mg PO DAILY 0RF vitamin E (dl, acetate) 45 mg (100 unit) capsule 45 mg PO DAILY 0RF metformin 1,000 mg tablet 1,000 mg PO BID 0RF mupirocin 2 % ointment 1 applic topical BID 0RF vitamin B complex [B Complex-Vitamin B12] Tablet 1 tab PO DAILY 0RF mometasone 0.1 % cream 1 applic topical DAILY 0RF triamcinolone acetonide 0.1 % ointment 1 applic topical DAILY 0RF zinc gluconate 50 mg tablet 50 mg PO DAILY 0RF hydrocortisone 1 % cream 1 applic topical BID-QID PRN0RF clotrimazole 1 % cream 1 applic topical BID 0RF albuterol sulfate [Ventolin HFA] 8 GM HFA aerosol inhaler 2 puff Inhalation Q4H PRN 0RF norethindrone ac-eth estradiol 1 EACH tablet 1 ea PO HS 0RF misc 1 ea UD DAILY Qty: 1 0RF Rx Instructions: Cooling vest for MS cholecalciferol (vitamin D3) [Vitamin D3] 2,000 UNIT capsule 5,000 unit PO DAILY 0RF chlorthalidone 25 MG tablet 25 mg PO DAILY 0RF amlodipine 5 MG tablet 5 mg PO HS 0RF Discharge Instructions Additional Instructions: Feel free to return to the emergency department for any new or significant worsening of your symptoms. These would include severe belly pain, nausea vomiting, fever chills, or further concerns. Otherwise stay well-hydrated and take your medications as prescribed. Please follow-up with your primary care provider later this week for reassessment Referrals: Deepali Zuleta MD [Primary Care Provider] - Discharge Data Discharge Date/Time-TO BE ENTERED AT DEPARTURE: 08/03/21 22:18 Medical Decision Making Patient presenting to the emergency department after being referred here from the urgent care for left lower quadrant abdominal pain. Patient reports discomfort has been increasing over the past 3 days. Has had some nausea and loose stools with some subjective fevers but states this also may be her thyroid. Physical exam shows significant tenderness to left lower quadrant otherwise difficult to fully assess given that patient is very obese. Plan to check labs urine and CT imaging with main concern of diverticulitis. Will give patient fluids pain meds and nausea medication pending results. Review of labs show a leukocytosis but also increase in RBCs which could also be some contributing dehydration. CMP also shows slight anion gap and elevation in creatinine again leading me to believe slight dehydration with possible infectious etiology. Review of CT imaging shows concern of early colitis versus diverticulitis. I do feel that diverticulitis more fits patient's pain pattern and increasing discomfort. We will plan on placing patient on Cipro Flagyl and thoroughly discussed with patient return and follow-up precautions. Did discuss with patient risk versus benefit of fluoroquinolones along with monitoring for any potential side effects. Patient placed upon follow-up list to follow-up with primary care provider for reassessment preferably later this week. After discussion of diagnosis and plan of care patient has no further needs, questions, or concerns and states clear understanding to return to the emergency department for any worsening symptoms. Imaging Data Radiologic Study: Imaging: CT Scan Radiologist's impression: IMPRESSION: Minimal pericolonic mesenteric fat stranding surrounding a short segment of proximal sigmoid colon (series 6, image 65), may be compatible with very early colitis/diverticulitis Lab Data Lab results reviewed: Yes I reviewed the patient's lab results. Labs: Laboratory Tests Range/Units 08/03/21 08/03/21 08/03/21 19:58 19:58 19:58 WBC (4.4-10.8) 10^3/uL 16.15 H RBC (3.93-5.22) 10^6/uL 5.82 H Hgb (11.2-15.7) g/dL 15.4 Hct (36.0-46.0) % 48.5 H MCV (80-95) fL 83.3 MCH (27.0-33.0) pg 26.5 L MCHC (32.0-36.0) % 31.8 L RDW (11.7-14.6) % 14.2 Plt Count (130-400) 10^3/uL 113 L MPV (8.0-11.0) fL Immature Gran % 0.9 Neutrophils % 77.1 Lymphocytes % 15.4 Monocytes % 5.6 Eosinophils % 0.6 Basophils % 0.4 Nucleated RBC % % 0 Absolute Neutrophils (1.2-6.7) 10^3/uL 12.45 H Absolute Lymphocytes (1.2-3.4) 10^3/uL 2.49 Absolute Monocytes (0.1-0.8) 10^3/uL 0.90 H Absolute Eosinophils (0.0-0.7) 10^3/uL 0.10 Absolute Basophils (0.0-0.2) 10^3/uL 0.06 Sodium (136-145) mmol/L 140 Potassium (3.5-5.1) mmol/L 3.5 Chloride (98-107) mmol/L 104 Carbon Dioxide (21.0-32.0) mmol/L 24.5 Anion Gap (3-11) mmol/L 11.5 H BUN (7-18) mg/dL 15 Creatinine (0.55-1.02) mg/dL 1.1 H Estimated GFR/1.73 m2 (mL/min/1.73m2) 52.58 Glucose (74-106) mg/dL 152 H Calcium (8.5-10.1) mg/dL 9.4 Magnesium (1.8-2.4) mg/dL 1.7 L Total Bilirubin (0.2-1.0) mg/dL 0.3 AST (15-37) U/L 16 ALT (14-59) U/L 29 Alkaline Phosphatase (46-116) U/L 97 Total Protein (6.4-8.2) g/dL 8.6 H Albumin (3.4-5.0) g/dL 3.6 Lipase (73-393) U/L 127 HPI General Mode of arrival: ambulatory. Date/Time Provider Initiated Documentation: 08/03/21 19:37. Limitations to Documentation: no limitations. Information obtained by: patient, RN notes reviewed and old records reviewed. History of Present Illness 51 year old F presents to the emergency department with the chief complaint of Abd pain, described as severe, with intensity rated at 8. Quality is described as sharp, and is localized to the abdomen. Patient reports no radiation. Patient started experiencing this day(s) (3) and it has been constant. improves with No relieving factors improve symptom(s), No exacerbating factors reported . Patient did receive the following treatments prior to arrival, none Related Data Home Medications Medication Instructions Recorded Confirmed albuterol sulfate 90 mcg/actuation 2 puff INHALATION Q4H PRN puff 11/05/12 08/03/21 aerosol inhaler (Ventolin HFA) cholecalciferol (vitamin D3) 50 5,000 unit PO DAILY 07/08/14 08/03/21 mcg (2,000 unit) capsule (Vitamin D3) norethindrone acetate 1 mg-ethinyl 1 ea PO HS 11/16/16 08/03/21 estradiol 5 mcg tablet amlodipine 5 mg tablet 5 mg PO HS 05/10/17 08/03/21 chlorthalidone 25 mg tablet 25 mg PO DAILY 05/10/17 08/03/21 metformin 1,000 mg tablet 1,000 mg PO BID tab 01/14/19 08/03/21 ascorbic acid (vitamin C) 1,000 mg 1 g PO DAILY tab 11/17/20 08/03/21 tablet pyridoxine (vitamin B6) 100 mg 100 mg PO DAILY tab 11/17/20 08/03/21 tablet riboflavin (vitamin B2) 100 mg 100 mg PO DAILY 11/17/20 08/03/21 tablet vitamin E (dl, acetate) 45 mg (100 45 mg PO DAILY 11/17/20 08/03/21 unit) capsule clotrimazole 1 % topical cream 1 applic TOPICAL BID 06/10/21 08/03/21 hydrocortisone 1 % topical cream 1 applic TOPICAL BID-QID PRN 06/10/21 08/03/21 mometasone 0.1 % topical cream 1 applic TOPICAL DAILY 06/10/21 08/03/21 mupirocin 2 % topical ointment 1 applic TOPICAL BID 06/10/21 08/03/21 triamcinolone acetonide 0.1 % 1 applic TOPICAL DAILY 06/10/21 08/03/21 topical ointment vitamin B complex (B 1 tab PO DAILY 06/10/21 08/03/21 Complex-Vitamin B12) zinc gluconate 50 mg tablet 50 mg PO DAILY 06/10/21 08/03/21 ciprofloxacin HCl 500 mg tablet 500 mg PO BID #14 tab 08/03/21 (Cipro) metronidazole 500 mg tablet 500 mg PO TID 7 Days #21 tab 08/03/21 Previous Rx's Medication Instructions Recorded ciprofloxacin HCl 500 mg tablet 500 mg PO BID #14 tab 08/03/21 (Cipro) metronidazole 500 mg tablet 500 mg PO TID 7 Days #21 tab 08/03/21 Allergies Allergy/AdvReac Type Severity Reaction Status Date / Time codeine AdvReac Mild NAUSEA/VOMI Unverified 08/03/21 19:49 TING General Stated Complaint: Abd Prob TATIANNA: 3 Review of Systems Constitutional Constitutional: Denies chills, Reports fever(s) (subjective) and Reports poor appetite Cardiovascular Cardiovascular: Denies chest pain and Denies dyspnea Respiratory Respiratory: Denies cough and Denies dyspnea Gastrointestinal Gastrointestinal: Reports as per HPI, Reports abdominal pain, Denies melena, Denies change in bowel habits, Denies constipation, Denies diarrhea, Reports nausea and Denies vomiting Genitourinary Genitourinary: Denies hematuria, Denies urinary incontinence, Denies urinary hesitancy and Denies urinary urgency Integumentary/Breasts Skin/Breast: Denies rash PFSH All Active Problems (Updated 08/03/21 @ 21:56 by Tamir Peña NP) Diverticulitis (Chronic) Abscess of left ear canal (Acute) Osteoarthritis of right knee (Acute) Morbid obesity (Acute) Sensorineural hearing loss of both ears (Acute) Asymmetrical sensorineural hearing loss (Acute) Biceps tendinitis of right upper extremity (Acute) Chronic low back pain (Acute) Eczema (Acute 06/10/13) Carpal tunnel syndrome of right wrist (Acute 09/07/15) Foot pain, bilateral (Acute) Migraine without aura and without status migrainosus, not intractable (Acute 11/13/17) Multiple sclerosis (Acute 11/05/12) Chronic nonintractable headache (Acute 11/13/17) Conductive hearing loss in left ear (Acute 11/26/15) Menorrhagia (Acute 12/08/15) Medical History Anxiety ASCUS (atypical squamous cells of undetermined significance) on gynecologic Papanicolaou smear complicating , antepartum Carpal tunnel syndrome of right wrist Claustrophobia Cyst epidermal inclusion cyst Depression Diabetes type 2, controlled Elevated WBC count Foot pain, left Former tobacco use Generalized anxiety disorder HTN (hypertension) Hyperparathyroidism Primary hyperparathyroidism with an intrathyroidal parathyroid adenoma. Insomnia ITP (idiopathic thrombocytopenic purpura) Morbid obesity with BMI of 60.0-69.9, adult Multiple sclerosis Obstructive sleep apnea OM (onychomycosis) Papillary thyroid carcinoma Papillary thyroid cancer, found Jun 2017. Monitored by [facility] Endo with yearly US. Prediabetes Thrombocytopenia Vitamin B12 deficiency Vitamin D deficiency Surgical History S/P section S/P partial thyroidectomy R partial. Jun 2017. Family History Mother Diabetes Essential hypertension Other Cancer Social History Smoking/Tobacco Use Status: Former Tobacco Use Quit Date: 11/05/16 Pack-years: 20 Smoking risk assessment performed?: Yes Alcohol Intake: never Drug use: Never Household members: spouse current occupation: Disabled. Current gender identity: female Do you feel safe at home: Yes Do you feel safe in your relationship?: Yes Exam Const General: cooperative Orientation: alert, awake and oriented x3 Resp Effort & Inspection: normal respiratory effort and able to speak in complete sentences Auscultation: clear to auscultation bilaterally Cardio Rate: regular rate Rhythm: regular rhythm Heart Sounds: S1 normal and S2 normal GI Inspection: large pannus and obesity Palpation: soft, not firm, guarding in the LLQ, not rigid and tender in the LLQ Auscultation: hypoactive bowel sounds Back/Spine/Pelvis Back: no CVA tenderness Neuro General: patient alert, patient awake, patient oriented x3, gait normal and moves all extremities Course Vital Signs Vital signs: Vital Signs Temperature 37 C 08/03/21 19:40 Pulse 130 H 08/03/21 19:40 Respiratory Rate 20 08/03/21 19:40 Blood Pressure 173/88 H 08/03/21 19:40 Pulse Oximetry 98 08/03/21 19:40 Temperature 37 C 08/03/21 19:40 Temperature Source Skin 08/03/21 19:40 Pulse 96 H 08/03/21 21:18 Respiratory Rate 20 08/03/21 19:40 Respiratory Effort 08/03/21 20:00 Blood Pressure 125/63 08/03/21 21:18 Blood Pressure Mean 76 08/03/21 21:18 Blood Pressure Position Sitting 08/03/21 19:40 Pulse Oximetry 91 L 08/03/21 21:20 Oxygen Delivery Method Room Air 08/03/21 19:40 Oxygen Flow Rate 0 08/03/21 19:40 Pain Level 7 08/03/21 19:48 Lab/Test Results Lab/Test Results: Laboratory Tests Range/Units 08/03/21 08/03/21 08/03/21 19:58 19:58 19:58 WBC (4.4-10.8) 10^3/uL 16.15 H RBC (3.93-5.22) 10^6/uL 5.82 H Hgb (11.2-15.7) g/dL 15.4 Hct (36.0-46.0) % 48.5 H MCV (80-95) fL 83.3 MCH (27.0-33.0) pg 26.5 L MCHC (32.0-36.0) % 31.8 L RDW (11.7-14.6) % 14.2 Plt Count (130-400) 10^3/uL 113 L MPV (8.0-11.0) fL Immature Gran % 0.9 Neutrophils % 77.1 Lymphocytes % 15.4 Monocytes % 5.6 Eosinophils % 0.6 Basophils % 0.4 Nucleated RBC % % 0 Absolute Neutrophils (1.2-6.7) 10^3/uL 12.45 H Absolute Lymphocytes (1.2-3.4) 10^3/uL 2.49 Absolute Monocytes (0.1-0.8) 10^3/uL 0.90 H Absolute Eosinophils (0.0-0.7) 10^3/uL 0.10 Absolute Basophils (0.0-0.2) 10^3/uL 0.06 Sodium (136-145) mmol/L 140 Potassium (3.5-5.1) mmol/L 3.5 Chloride (98-107) mmol/L 104 Carbon Dioxide (21.0-32.0) mmol/L 24.5 Anion Gap (3-11) mmol/L 11.5 H BUN (7-18) mg/dL 15 Creatinine (0.55-1.02) mg/dL 1.1 H Estimated GFR/1.73 m2 (mL/min/1.73m2) 52.58 Glucose (74-106) mg/dL 152 H Calcium (8.5-10.1) mg/dL 9.4 Magnesium (1.8-2.4) mg/dL 1.7 L Total Bilirubin (0.2-1.0) mg/dL 0.3 AST (15-37) U/L 16 ALT (14-59) U/L 29 Alkaline Phosphatase (46-116) U/L 97 Total Protein (6.4-8.2) g/dL 8.6 H Albumin (3.4-5.0) g/dL 3.6 Lipase (73-393) U/L 127
[2021-08-03] MEDS: Ciprofloxacin 500 MG TAB PO (22:13)
[2021-08-03] MEDS: metroNIDAZOLE 500 MG TAB PO (22:13)
== END 2021-08-03 22:18 | disposition home or self-care (01) ==
LOC: ER 22:06
PROVIDERS: Emergency Provider Nurse Practitioner Family; PCP Family Medicine
DX: K57.32 Diverticulitis of large intestine without perforation or abscess without bleeding (principal); D72.829 Elevated white blood cell count, unspecified; R10.32 Left lower quadrant pain
CPT/HCPCS: 36415; 80053; 83690; 96361; 96374; 96375; 99285; 74177; 83735; 85025; 99284; J2405; J3490

== ENCOUNTER 2021-08-03 20:53 | Outpatient (REF) | payer MEDICARE, MEDICAID, SELFPAY ==
[2021-08-03 20:59] LABS: Bilirubin Negative (Negative); Blood Negative (Negative); Clarity Clear (Clear); Glucose Negative (Negative); Ketones Negative (Negative); Leukocyte Esterase Negative (Negative); Nitrite Negative (Negative); Specific Gravity >= 1.030 (1.005-1.025); Urobilinogen 0.2 EU/dL (Up TO 0.2); pH 6.5 (5-8)
[2021-08-03 21:29] LABS: Bacteria Few HPF (Negative); C & S Indicated? No/Sq. Contamination; Casts Negative LPF (Negative); Crystals Negative HPF (Negative); Epithelial Cells Many HPF (Negative); Mucus Negative (Negative); RBC Negative HPF (0-2)
== END 2021-08-03 20:54 | disposition home or self-care (01) ==
LOC: LBN 20:53
PROVIDERS: PCP Family Medicine; Visit Provider Nurse Practitioner Family
DX: R39.89 Other symptoms and signs involving the genitourinary system (principal)
CPT/HCPCS: 81003; 81015

== ENCOUNTER → 2021-08-09 14:31 | Outpatient (BNVA) | payer MEDICARE, MEDICAID, SELFPAY | PROVIDERS: PCP Family Medicine; Visit Provider Psychiatry & Neurology Neurology | DX: E11.42 Type 2 diabetes mellitus with diabetic polyneuropathy (principal); G35 Multiple sclerosis; G43.009 Migraine without aura, not intractable, without status migrainosus; G89.29 Other chronic pain | CPT/HCPCS: 99214 ==

== ENCOUNTER 2021-09-08 08:41 | Outpatient (CLI) | payer MEDICARE, MEDICAID, SELFPAY ==
--- NOTE | 2021-09-08 06:00 | DI.RAD_ITS ---
Exam(s) XR PAIN CLINIC FLUORO JOINT IN EXAM: XR PAIN CLINIC FLUORO JOINT IN CLINICAL HISTORY: knee osteoarthritis. TECHNIQUE: Fluoroscopy was provided for the referring physician for guidance with performing injecti on procedure. COMPARISON: No exams were available for comparison FINDINGS: Please see procedure note for details. Fluoro time: 70.1 RADIATION DOSE DELIVERED: derek Carranza=6.0 mGy
[2021-09-08 09:24] VITALS: BP 147/87; PULSE 90; RESP 20; TEMP 37; O2SAT 97
--- NOTE | 2021-09-08 10:03 | PDOC.PAIN_ITS ---
Pain Clinic Procedure Note Procedure Note Procedure Note: RIGHT GENICULAR NERVE BLOCK Date of Service: September 08, 2021 Patient: Kat Vanegas Provider: Dinesh Huang DO, MPH Pre-operative diagnosis: Right Knee pain Post-operative diagnosis: Same Pre-procedure pain: VAS= 8/10 COMMENTS: She was previously seen in our office on 06/29/21 Kat Vanegas has been referred [facility] the [facility] for RIGHT genicular nerve block. Kat was interviewed and the medical record reviewed. There were no medical, pharmacologic, radiographic or other structural contraindications to attempting fluoroscopically guided RIGHT genicular nerve block. Risks and potential side effects as well as potential benefit of the procedure were reviewed with Kat , and HER voiced concerns were addressed. After I believed that the patient was completely informed, the printed consent form was signed. Standard time-out procedure was performed. Kat was placed in the supine position on the fluoroscopy table and automated blood pressure cuff and pulse oximeter applied. The skin entry points for approaching RIGHT superolateral genicular nerve, the superomedial genicular nerve, the terminal branch of the nerve vastus intermedius and the inferomedial genicular was identified under the most advantageous fluoroscopic view and marked. Following thorough Chlorhexadine preparation of the skin and draping, 1% lidocaine infiltration of the skin entry point and subcutaneous tissues was accomplished using a 1.5 25G needle. Next, the 3.5 25G spinal needle was advanced to os at the location of the specific nerve root using fluoroscopic guidance. Next, 1 ml of 0.5% Bupivacaine was injected at each site. The needles were removed without difficulty. Kat's vital signs were stable throughout the procedure and were as recorded in the docflowsheet by the nursing staff. If given, dosages of intravenous drugs for anxiolysis and analgesia were documented in MAR. Follow up plans and appointments were discussed with the Kat . Post procedure instruction was given as documented in nursing documentation and having met discharge criteria, Kat was discharged from the [facility]. COMMENTS: No apparent complications. Post-procedure pain: VAS = 0/10. The humble ent will keep track of her RIGHT knee pain over the next four hours. If Kat has sufficient pain relief, Kat will be a candidate for radiofrequency ablation at the same nerves. Nitish WJ1, Raisa SJ, Tate TompkinsG, Gala TompkinsG, Juan RIVERA, Nadege PH, Xavi JW. Radiofrequency treatment relieves chronic knee osteoarthritis pain: a double-blind randomized controlled trial. Pain. 2011 Jul;152(3):481-7. doi: 10.1016/j.pain.2010.09.029. Yasmine S1, Dave ON2, Benigno Y3, ?zl?yas P2, Carlos U1, Kayode ?m?rl? I. Which one is more effective for the clinical treatment of chronic pain in knee osteoarthritis: radiofrequency neurotomy of the genicular nerves or intra- articular injection? Int J Rheum Dis. 2016 Dec 17. F/U with our office with the 1-4 hour post-procedure pain scores. I personally performed this entire procedure. Dinesh Huang DO, MPH Attending Physician Pain Management
[2021-09-08] MEDS: Omnipaque 240 MG/ML 50 ML BTL IJ (10:12)
[2021-09-08 10:13] VITALS: BP 130/66; PULSE 68; RESP 20; O2SAT 98
[2021-09-08] MEDS: Bupivacaine 0.5% Pres-Free 10 ML VIAL IJ (10:13)
== END 2021-09-08 08:42 | disposition home or self-care (01) ==
LOC: PC 08:42
PROVIDERS: PCP Family Medicine; Visit Provider Preventive Medicine Occupational Medicine
DX: M25.561 Pain in right knee (principal)
CPT/HCPCS: 64454; 77002; Q9967

== ENCOUNTER 2021-10-08 15:08 | Outpatient (REF) | payer MEDICARE, MEDICAID, SELFPAY ==
--- NOTE | 2021-10-08 13:55 | NASALBX_PTH ---
PATIENT: Kat Vanegas LOC: [facility] U#:[id number] AGE/SX: 51/F ROOM: RE10/08/[address]: DARREN Sanders : 1970 BED: DIS: 10/08/2021 SPEC #: [id number] RECD: 10/08/21 18:15 STATUS: SAVANAH REQ #: [id number] LYNDA: 10/08/21 13:[address]: Delvin Alfred DEPT: Surgical Specimen RECD BY: Emily Guillory ENTERED: 10/08/21 18:15 SP TYPE: NASALBX OTHR DR: Deepali Zuleta Tissues: NASAL/OROPHARYNX BIOPSY Procedures: SKIN LEVEL 4 Comments: [id number]
== END 2021-10-08 15:09 | disposition home or self-care (01) ==
LOC: LBN 15:08
PROVIDERS: PCP Family Medicine; Visit Provider Physician Assistant
DX: L82.0 Inflamed seborrheic keratosis (principal)
CPT/HCPCS: 88305

== ENCOUNTER → 2021-10-11 08:08 | Outpatient (BNVA) | payer MEDICARE, MEDICAID, SELFPAY | PROVIDERS: PCP Family Medicine; Referring Provider Family Medicine; Visit Provider Psychiatry & Neurology Neurology | DX: G35 Multiple sclerosis (principal); G43.009 Migraine without aura, not intractable, without status migrainosus; M54.50 Low back pain, unspecified; G89.29 Other chronic pain | CPT/HCPCS: 99214 ==

== ENCOUNTER → 2021-12-14 07:44 | Outpatient (BNVA) | payer MEDICARE, MEDICAID, SELFPAY | PROVIDERS: PCP Family Medicine; Referring Provider Family Medicine; Visit Provider Psychiatry & Neurology Neurology | DX: G35 Multiple sclerosis (principal); G43.009 Migraine without aura, not intractable, without status migrainosus; G89.29 Other chronic pain | CPT/HCPCS: 99443 ==

== ENCOUNTER 2021-12-23 07:54 | Outpatient (CLI) | payer MEDICARE, MEDICAID, SELFPAY ==
--- NOTE | 2021-12-23 06:00 | DI.RAD_ITS ---
Exam(s) XR PAIN CLINIC FLUORO JOINT IN EXAM: XR PAIN CLINIC FLUORO JOINT IN CLINICAL HISTORY: DX: right knee osteoarthritis. TECHNIQUE: Fluoroscopy was provided for the referring physician for guidance with performing pain cl inic injection procedure. COMPARISON: No exams were available for comparison FINDINGS: Please see procedure note for details. Fluoro time: 81 seconds RADIATION DOSE DELIVERED: derek Carranza=15.54 mGy
[2021-12-23 08:01] VITALS: BP 150/93; PULSE 107; RESP 20; TEMP 36.9; O2SAT 94
[2021-12-23] MEDS: Midazolam 2 MG/2 ML VIAL IVP (08:41)
[2021-12-23] MEDS: fentaNYL 100 MCG/2 ML VIAL IVP (08:41)
--- NOTE | 2021-12-23 09:11 | PDOC.PAIN_ITS ---
Pain Clinic Procedure Note Procedure Note Procedure Note: RIGHT GENICULAR NERVE RADIOFREQUENCY ABLATION WITH THE COOLIEF MACHINE Date of Service: December 23, 2021 Patient: Kat Vanegas Provider: Dinesh Huang DO, MPH Pre-operative diagnosis: Right knee osteoarthritis Post-operative diagnosis: Same COMMENTS: Previous Genicular nerve block to the RIGHT knee. Kat Vanegas has been referred to the [facility] for RIGHT genicular nerve radiofrequency ablation. Kat was interviewed and the medical record reviewed. There were no medical, pharmacologic, radiographic or other structural contraindications to attempting fluoroscopically guided RIGHT genicular nerve radiofrequency ablation. Risks and potential side effects as well as potential benefit of the procedure were reviewed with Kat Vanegas , and HER voiced concerns were addressed. After I believed that the patient was completely informed, the printed consent form was signed. Standard time-out procedure was performed. Kat was placed in the supine position on the fluoroscopy table and automated blood pressure cuff and pulse oximeter applied. The skin entry points for approaching RIGHT superolateral genicular nerve, the superomedial genicular nerve, superior patellar nerve, and the inferomedial genicular was identified under the most advantageous fluoroscopic view and marked. Following thorough Chlorhexadine preparation of the skin and draping, 1% lidocaine infiltration of the skin entry point and subcutaneous tissues was accomplished using a 1.5 25G needle. Next, the 10 cm 18G RF Cannula with a 10 mm active tip was advanced to os at the location of the specific nerve roots (3) using fluoroscopic guidance. Next, sensory and motor testing was performed and no abnormal findings were found. Next, 1 cc of 2% Lidocaine was injected at each site. The lesion was then created with 80 degrees C for 90 seconds. Each needle was advance 1 cm and the lesion was completed again. Each cannula was advanced until the tip reached the posterior aspect of the bone shaft. 1/4 cc of Depomedrol (40 mg/cc) was then injected at each site followed by 1 cc of 0.5% Bupivacaine as the needle was withdrawn. The needles were removed without difficulty. Nik vital signs were stable throughout the procedure and were as recorded in the docflowsheet by the nursing staff. If given, dosages of intravenous drugs for anxiolysis and analgesia were documented in MAR. Follow up plans and appointments were discussed with the Kat Vanegas . Post procedure instruction was given as documented in nursing documentation and having met discharge criteria, Kat was discharged from the [facility]. COMMENTS: No complications. Talbert WJ1, Raisa SJ, Tate JG, Gala JG, Martinez RIVERA, Park PH, Hurley JW. Radiofrequency treatment relieves chronic knee osteoarthritis pain: a double-blind randomized controlled trial. Pain. 2010;152(3):481-7. doi: 10.1016/j.pain.2010.09.029. Yasmine S1, Dave ON2, Benigno Y3, ?zl?yas P2, Carlos U1, Kayode ?m?rl? I. Which one is more effective for the clinical treatment of chronic pain in knee osteoarthritis: radiofrequency neurotomy of the genicular nerves or intra- articular injection? Int J Rheum Dis. 2016 Dec 17. F/U with our office as needed I personally performed this entire procedure. Dinesh Huang DO, MPH Attending Physician
[2021-12-23] MEDS: Lidocaine 2% Pres-Free 5 ML VIAL IJ (09:26)
[2021-12-23] MEDS: Bupivacaine 0.5% Pres-Free 10 ML VIAL IJ (09:26)
[2021-12-23] MEDS: methylPREDNISolone ACETATE 40 MG/ML VIAL IJ (09:27)
[2021-12-23] MEDS: Lactated Ringers 500 ML 80 ML IV (09:27)
[2021-12-23 09:28] VITALS: BP 157/84; PULSE 100; RESP 22; O2SAT 97
== END 2021-12-23 07:55 | disposition home or self-care (01) ==
LOC: PC 07:54
PROVIDERS: PCP Family Medicine; Visit Provider Preventive Medicine Occupational Medicine
DX: M17.11 Unilateral primary osteoarthritis, right knee (principal); M25.561 Pain in right knee
CPT/HCPCS: 64624; 77002; J1030; J2250; J3010

== ENCOUNTER 2021-12-27 14:46 | Outpatient (REF) | payer MEDICARE, MEDICAID, SELFPAY ==
[2021-12-27 15:26] LABS: Abs Immature Grans 0.13 10^3/uL (0.0-0.06); Absolute Basophil Count 0.06 10^3/uL (0.0-0.2); Absolute Lymphocyte Count 1.93 10^3/uL (1.2-3.4); Absolute Monocyte Count 0.81 10^3/uL (0.1-0.8); Absolute Neutrophil Count 11.46 10^3/uL (1.2-6.7); Basophils % 0.4; Eosinophils % 0.7; HCT 46.1 % (36.0-46.0); HGB 14.8 g/dL (11.2-15.7); Immature Grans % 0.9; Lymphocytes % 13.3; MCH 26.4 pg (27.0-33.0); MCHC 32.1 % (32.0-36.0); MCV 82 fL (80-95); Monocytes % 5.6; Neutrophils % 79.1; RBC 5.61 10^6/uL (3.93-5.22); RDW 14.3 % (11.7-14.6); RDW-SD 42.3 fL; WBC 14.49 10^3/uL (4.4-10.8)
[2021-12-27 16:02] LABS: Anion Gap 8.3 mmol/L (3-11); BUN 10 mg/dL (7-18); CO2 29.7 mmol/L (21.0-32.0); CREATININE 0.9 mg/dL (0.55-1.02); Chloride 103 mmol/L (98-107); Glucose 125 mg/dL (74-106); Potassium 3.8 mmol/L (3.5-5.1); Sodium 141 mmol/L (136-145); TSH (W/Ref FT4) 1.24 uIU/mL (0.36-3.74)
[2021-12-27 16:41] LABS: Vitamin D 25 Total 34.7 ng/mL (30-100)
[2021-12-27 16:45] LABS: Diff Comment PLT Morph Reviewed; Platelet Count 118 10^3/uL (130-400); RBC Morphology Normal
[2021-12-27 23:27] LABS: Thyroglobulin Antibody <15 U/mL (<=60)
[2021-12-28 09:45] LABS: Parathyroid Hormone,Intact 30 pg/mL (19-88)
== END 2021-12-27 14:47 | disposition home or self-care (01) ==
LOC: NCHCN 14:46
PROVIDERS: PCP Family Medicine; Visit Provider Family Medicine
DX: C73 Malignant neoplasm of thyroid gland (principal); E55.9 Vitamin D deficiency, unspecified; I10 Essential (primary) hypertension; D72.829 Elevated white blood cell count, unspecified; E21.3 Hyperparathyroidism, unspecified
CPT/HCPCS: 80048; 82306; 83970; 84443; 85025; 86800

== ENCOUNTER → 2022-01-12 03:02 | Outpatient (CLI) | payer MEDICARE, MEDICAID, SELFPAY ==
--- NOTE | 2022-01-12 | DI.CTLCSR_ITS ---
Exam(s) CT CHEST LUNG CANCER SCREEN EXAM: CT CHEST LUNG CANCER SCREEN CLINICAL HISTORY: FORMER SMOKER Z87.891 SCREENING FOR LUNG CANCER TECHNIQUE: Imaging Protocol: Axial computed tomography images with coronal and sagittal reformatted images were created and reviewed COMPARISON: CT CT ABDOMEN PELVIS W from 08/03/2021 FINDINGS: Examination limited by patient body habitus. Tracheobronchial tree: Patent where visualized. Pulmonary parenchyma: No consolidation or dominant measurable mass. No architectural distortion. Lung Nodules: None. Mediastinum and Thi: No dominant adenopathy or fluid collection. The esophagus is unremarkable. Lymph nodes: Unremarkable. Pleura: No effusion or pneumothorax. Heart: The heart is not dilated. No coronary artery calcifications are seen. No pericardial effusion . Aorta: Thoracic aorta non-dilated. Upper abdomen: Unremarkable. Soft Tissues: Unremarkable. Bones: Within normal limits. IMPRESSION: No pulmonary nodules. Lung RADS Cat 1 - Negative: No nodules and definitely benign nodules Lung-RADS 1.0 CATEGORIES: Category 0 - Prior chest CT exam(s) being located for comparison. Category 1 - Annual screening in 12 months. No nodules or definitely benign nodules. Category 2 - Annual screening in 12 months. Benign appearance. Nodules with low likelihood of becomin g active cancer. Category 3 - 6-month follow-up. Probably benign. Short-term follow-up suggested. Nodules with low lik elihood of becoming active cancer. Category 4A - 3-month follow-up and CT/PET if >8 mm in size. Suspicious finding. Findings which requi re additional testing. Category 4B - Findings which require additional testing and tissue sampling. Suspicious finding. Category 4X - Category 3 or 4 nodules with additional features or imaging findings that increases the suspicion of malignancy. Modifier S- Potentially clinically significant finding. (Non lung cancer) RADIATION DOSE DELIVERED: 80.03mGy.cm Total DLP 2.21mGy CTDIvol 80.03mGy.cm Total DLP 2.21mGy CTDIvol DATA REPOSITORY: All CT scans at this facility are submitted to the National Radiology Data Registry (NRDR) Dose Index Registry (DIR) with the [employer] (A[employer]). RADIATION OPTIMIZATION: All CT scans at this facility use at least one of these dose optimization te chniques: automated exposure control; mA and/or kV adjustment per patient size (includes targeted exa ms where dose is matched to clinical indication); or iterative reconstruction.
== END ==
PROVIDERS: PCP Family Medicine; Visit Provider Family Medicine
DX: Z87.891 Personal history of nicotine dependence (principal); Z12.2 Encounter for screening for malignant neoplasm of respiratory organs
CPT/HCPCS: 71271

== ENCOUNTER → 2022-02-09 13:49 | Outpatient (BNVA) | payer MEDICARE, MEDICAID, SELFPAY | PROVIDERS: PCP Family Medicine; Referring Provider Family Medicine; Visit Provider Psychiatry & Neurology Neurology | DX: G43.709 Chronic migraine without aura, not intractable, without status migrainosus (principal); G47.33 Obstructive sleep apnea (adult) (pediatric); G62.9 Polyneuropathy, unspecified; G35 Multiple sclerosis | CPT/HCPCS: 95885; 95909; 99214 ==

== ENCOUNTER 2022-02-10 14:00 | Outpatient (CLI) | payer MEDICARE, MEDICAID, SELFPAY ==
[2022-02-10 11:10] LABS: Vitamin B12 842 pg/mL (193-986)
[2022-02-10 11:20] LABS: TSH 0.94 uIU/mL (0.36-3.74)
[2022-02-11 11:59] LABS: Albumin 53.3 % (55.8-66.1); Albumin g/dL 3.7 g/dL (3.6-5.2); Total Protein 6.9 g/dL (6.3-8.2)
[2022-02-11 16:21] LABS: Thyroglobulin Antibody <1.8 IU/mL (<1.8); Thyroglobulin Tumor Marker 29 ng/mL
== END 2022-02-10 14:01 | disposition home or self-care (01) ==
LOC: LBO 14:04
PROVIDERS: Surgery; PCP Family Medicine; Visit Provider Psychiatry & Neurology Neurology
DX: G62.9 Polyneuropathy, unspecified (principal); C73 Malignant neoplasm of thyroid gland
CPT/HCPCS: 36415; 82607; 84165; 84432; 84443; 86800

== ENCOUNTER 2022-03-21 16:49 | Outpatient (REF) | payer MEDICARE, MEDICAID, SELFPAY | END 2022-03-21 16:50 | disposition home or self-care (01) | LOC: NCHCN 16:49 | PROVIDERS: PCP Family Medicine; Visit Provider Family Medicine | DX: J06.9 Acute upper respiratory infection, unspecified (principal); R05.8 Other specified cough | CPT/HCPCS: 87070; 87205 ==

== ENCOUNTER 2022-04-01 15:52 | Outpatient (REF) | payer MEDICARE, MEDICAID, SELFPAY ==
[2022-04-01 14:32] LABS: COMMENT (LAB VIEW ONLY) 34.89 mg/dL
== END 2022-04-01 15:53 | disposition home or self-care (01) ==
LOC: NCHCN 15:52
PROVIDERS: PCP Family Medicine; Visit Provider Family Medicine
DX: E11.9 Type 2 diabetes mellitus without complications (principal)
CPT/HCPCS: 82043; 82570

== ENCOUNTER 2022-06-23 11:47 | Outpatient (REF) | payer MEDICARE, MEDICAID, SELFPAY ==
[2022-06-23 15:14] LABS: Anion Gap 9.4 mmol/L (3-11); BUN 11 mg/dL (7-18); CO2 28.6 mmol/L (21.0-32.0); CREATININE 0.9 mg/dL (0.55-1.02); Calcium 9.2 mg/dL (8.5-10.1); Chloride 101 mmol/L (98-107); Glucose 113 mg/dL (74-106); Potassium 4.4 mmol/L (3.5-5.1); Sodium 139 mmol/L (136-145)
[2022-06-23 15:32] LABS: Bilirubin Negative (Negative); Blood Negative (Negative); Clarity Clear (Clear); Glucose Negative (Negative); Ketones Negative (Negative); Leukocyte Esterase Negative (Negative); Nitrite Negative (Negative); Specific Gravity 1.015 (1.005-1.025); Urobilinogen 0.2 EU/dL (Up TO 0.2)
[2022-06-23 16:17] LABS: COMMENT (LAB VIEW ONLY) 40.22 mg/dL; Microalb ug/mg Crea 82.8 ug/mg Cr
== END 2022-06-23 11:48 | disposition home or self-care (01) ==
LOC: NCHCN 11:47
PROVIDERS: PCP Family Medicine; Visit Provider Family Medicine
DX: I10 Essential (primary) hypertension (principal); E11.9 Type 2 diabetes mellitus without complications
CPT/HCPCS: 80048; 81003; 82043; 82570

== ENCOUNTER 2022-08-26 14:09 | Outpatient (CLI) | payer MEDICARE, MEDICAID, SELFPAY ==
[2022-08-26 10:31] LABS: ALT 31 U/L (14-59); AST 20 U/L (15-37); Albumin 3.3 g/dL (3.4-5.0); Alkaline Phosphatase 76 U/L (46-116); Amylase 47 U/L (25-115); Anion Gap 6.5 mmol/L (3-11); BUN 14 mg/dL (7-18); Bilirubin, Total 0.3 mg/dL (0.2-1.0); CO2 28.5 mmol/L (21.0-32.0); CREATININE 0.9 mg/dL (0.55-1.02); Calcium 9.5 mg/dL (8.5-10.1); Chloride 101 mmol/L (98-107); Glucose 113 mg/dL (74-106); Lipase 38 U/L (16-77); Potassium 4.1 mmol/L (3.5-5.1); Sodium 136 mmol/L (136-145); Total Protein 7.8 g/dL (6.4-8.2)
== END 2022-08-26 14:10 | disposition home or self-care (01) ==
LOC: LBO 14:14
PROVIDERS: PCP Family Medicine; Visit Provider Family Medicine
DX: R10.9 Unspecified abdominal pain (principal); R11.0 Nausea
CPT/HCPCS: 36415; 80053; 83690; 82150

== ENCOUNTER → 2022-09-29 12:29 | Outpatient (BNVA) | payer MEDICARE, MEDICAID, SELFPAY | PROVIDERS: PCP Family Medicine; Referring Provider Family Medicine; Visit Provider Psychiatry & Neurology Neurology | DX: G35 Multiple sclerosis (principal); M54.50 Low back pain, unspecified; G43.009 Migraine without aura, not intractable, without status migrainosus; G89.29 Other chronic pain; E11.40 Type 2 diabetes mellitus with diabetic neuropathy, unspecified | CPT/HCPCS: 99214 ==

== ENCOUNTER 2023-02-03 11:53 | Outpatient (REF) | payer MEDICARE, MEDICAID, SELFPAY ==
[2023-02-03 18:58] LABS: Abs Immature Grans 0.07 10^3/uL (0.0-0.06); Absolute Basophil Count 0.04 10^3/uL (0.0-0.2); Absolute Eosinophil Count 0.07 10^3/uL (0.0-0.7); Absolute Lymphocyte Count 1.81 10^3/uL (1.2-3.4); Absolute Monocyte Count 0.71 10^3/uL (0.1-0.8); Basophils % 0.3; Eosinophils % 0.6; HCT 44.1 % (36.0-46.0); HGB 14.2 g/dL (11.2-15.7); Immature Grans % 0.6; Lymphocytes % 14.6; MCH 26.2 pg (27.0-33.0); MCHC 32.2 % (32.0-36.0); MCV 82 fL (80-95); Monocytes % 5.7; Neutrophils % 78.2; RBC 5.41 10^6/uL (3.93-5.22); RDW 14.8 % (11.7-14.6); RDW-SD 43.9 fL; WBC 12.41 10^3/uL (4.4-10.8)
[2023-02-03 19:23] LABS: Platelet Count 100 10^3/uL (130-400)
[2023-02-03 19:24] LABS: C-Reactive Protein 1.37 mg/dL (0.0-0.3)
== END 2023-02-03 11:54 | disposition home or self-care (01) ==
LOC: NCHCN 11:53
PROVIDERS: PCP Family Medicine; Visit Provider Family Medicine
DX: R10.9 Unspecified abdominal pain (principal); R79.82 Elevated C-reactive protein (CRP)
CPT/HCPCS: 85025; 86140

== ENCOUNTER → 2023-03-15 08:39 | Outpatient (BNVA) | payer MEDICARE, MEDICAID, SELFPAY | PROVIDERS: PCP Family Medicine; Visit Provider Psychiatry & Neurology Neurology | DX: G62.9 Polyneuropathy, unspecified (principal); G35 Multiple sclerosis; G43.709 Chronic migraine without aura, not intractable, without status migrainosus; G47.33 Obstructive sleep apnea (adult) (pediatric); M54.50 Low back pain, unspecified; G89.29 Other chronic pain | CPT/HCPCS: 99214 ==

== ENCOUNTER → 2023-05-18 13:09 | Outpatient (BNVA) | payer MEDICARE, MEDICAID, SELFPAY | PROVIDERS: PCP Family Medicine; Referring Provider Family Medicine; Visit Provider Psychiatry & Neurology Neurology | DX: G35 Multiple sclerosis (principal); G62.9 Polyneuropathy, unspecified; G43.009 Migraine without aura, not intractable, without status migrainosus; G89.29 Other chronic pain | CPT/HCPCS: 99214 ==

== ENCOUNTER 2023-08-21 15:55 | Outpatient (REF) | payer MEDICARE, MEDICAID, SELFPAY ==
[2023-08-21 20:06] LABS: HCT 44.8 % (36.0-46.0); HGB 14.2 g/dL (11.2-15.7); MCH 26.8 pg (27.0-33.0); MCHC 31.7 % (32.0-36.0); MCV 85 fL (80-95); RDW 14.3 % (11.7-14.6); WBC 12.64 10^3/uL (4.4-10.8)
[2023-08-21 20:07] LABS: Platelet Count 100 10^3/uL (130-400)
[2023-08-21 20:15] LABS: BUN 10 mg/dL (7-18); CREATININE 0.9 mg/dL (0.55-1.02); Calcium 8.6 mg/dL (8.5-10.1); Chloride 105 mmol/L (98-107); Estimated GFR 76.92 (mL/min/1.73m2); Glucose 114 mg/dL (74-106); Potassium 4.2 mmol/L (3.5-5.1); Sodium 142 mmol/L (136-145)
[2023-08-21 20:35] LABS: COMMENT (LAB VIEW ONLY) 38.93 mg/dL; Microalb ug/mg Crea 82.5 ug/mg Cr
[2023-08-21 20:57] LABS: Hemoglobin A1C 7.5 % (<5.7)
== END 2023-08-21 15:56 | disposition home or self-care (01) ==
LOC: NCHCN 15:55
PROVIDERS: PCP Family Medicine; Visit Provider Family Medicine
DX: E11.9 Type 2 diabetes mellitus without complications (principal); D69.6 Thrombocytopenia, unspecified
CPT/HCPCS: 80048; 85027; 82043; 82570; 83036

== ENCOUNTER → 2023-09-13 10:48 | Outpatient (BNVA) | payer MEDICARE, MEDICAID, SELFPAY | PROVIDERS: PCP Family Medicine; Referring Provider Family Medicine; Visit Provider Psychiatry & Neurology Neurology | DX: G35 Multiple sclerosis (principal); G43.009 Migraine without aura, not intractable, without status migrainosus; G89.29 Other chronic pain; G62.9 Polyneuropathy, unspecified | CPT/HCPCS: 99213 ==

== ENCOUNTER 2024-02-14 12:22 | Outpatient (REF) | payer MEDICARE, MEDICAID, SELFPAY ==
[2024-02-14 16:17] LABS: HCT 45.2 % (36.0-46.0); HGB 14.4 g/dL (11.2-15.7); MCHC 31.9 % (32.0-36.0); MCV 85 fL (80-95); RBC 5.33 10^6/uL (3.93-5.22); RDW 14.3 % (11.7-14.6); RDW-SD 43.9 fL; WBC 12.33 10^3/uL (4.4-10.8)
[2024-02-14 16:46] LABS: ALT 18 U/L (14-59); AST 13 U/L (15-37); Albumin 3.4 g/dL (3.4-5.0); Alkaline Phosphatase 87 U/L (46-116); Anion Gap 10.6 mmol/L (3-11); BUN 13 mg/dL (7-18); Bilirubin, Total 0.28 mg/dL (0.2-1.0); CO2 27.4 mmol/L (21.0-32.0); CREATININE 0.9 mg/dL (0.55-1.02); Calcium 9.4 mg/dL (8.5-10.1); Chloride 104 mmol/L (98-107); Estimated GFR 76.92 (mL/min/1.73m2); Glucose 122 mg/dL (74-106); Potassium 4.5 mmol/L (3.5-5.1); Sodium 142 mmol/L (136-145); TSH (W/Ref FT4) 1.64 uIU/mL (0.36-3.74); Total Protein 7.3 g/dL (6.4-8.2)
[2024-02-14 17:04] LABS: Platelet Count 91 10^3/uL (130-400)
[2024-02-14 22:25] LABS: Thyroglobulin Antibody 15 U/mL (<=60); Thyroperoxidase Antibody <28 U/mL (<=60)
== END 2024-02-14 12:23 | disposition home or self-care (01) ==
LOC: NCHCN 12:22
PROVIDERS: PCP Family Medicine; Visit Provider Family Medicine
DX: E11.9 Type 2 diabetes mellitus without complications (principal)
CPT/HCPCS: 80053; 85027; 86376; 84443

== ENCOUNTER → 2024-03-07 09:33 | Outpatient (BNVA) | payer MEDICARE, MEDICAID, SELFPAY | PROVIDERS: PCP Family Medicine; Referring Provider Family Medicine; Visit Provider Podiatrist | DX: M79.671 Pain in right foot (principal); M25.572 Pain in left ankle and joints of left foot; L60.0 Ingrowing nail; E53.8 Deficiency of other specified B group vitamins; D69.6 Thrombocytopenia, unspecified; E11.9 Type 2 diabetes mellitus without complications; L60.3 Nail dystrophy; B35.1 Tinea unguium | CPT/HCPCS: 11719; 99214 ==

== ENCOUNTER 2024-03-11 03:11 | Outpatient (CLI) | payer MEDICARE, MEDICAID, SELFPAY ==
[2024-03-13 12:29] LABS: Thyroglobulin Antibody <1.8 IU/mL (<1.8); Thyroglobulin Tumor Marker 48 ng/mL
== END 2024-03-11 03:12 | disposition home or self-care (01) ==
LOC: LBO 03:12
PROVIDERS: PCP Family Medicine; Visit Provider Surgery
DX: E89.0 Postprocedural hypothyroidism (principal); E21.0 Primary hyperparathyroidism
CPT/HCPCS: 36415; 84432; 84443; 86800

== ENCOUNTER 2024-03-28 02:24 | Outpatient (CLI) | payer MEDICARE, MEDICAID, SELFPAY ==
--- NOTE | 2024-03-28 06:45 | DI.RAD_ITS ---
Exam(s) XR FOOT LT COMPLETE XR FOOT RT COMPLETE EXAM: XR FOOT LT COMPLETE CLINICAL HISTORY: Second MPJ,lt foot pain,m79.672. TECHNIQUE: 2D digital imaging was performed. Three views of both feet. COMPARISON: CR XR FOOT RT COMPLETE from 03/28/2024 FINDINGS: BONES: No acute fracture is present. No bony destructive lesion is seen. Small heel spurs bilateral ly. JOINTS: No dislocation present. Minimal degenerative changes of the 1st MTP joints bilaterally. Th e plantar arches are maintained. SOFT TISSUE: Normal. IMPRESSION: Mild degenerative changes and small heel spurs. DATA REPOSITORY: RADIATION DOSE DELIVERED:
== END 2024-03-28 02:44 ==
LOC: DI 02:24
PROVIDERS: PCP Family Medicine; Visit Provider Podiatrist
DX: M79.672 Pain in left foot (principal); M79.671 Pain in right foot
CPT/HCPCS: 73630

== ENCOUNTER 2024-04-18 02:35 | Outpatient (CLI) | payer MEDICARE, MEDICAID, SELFPAY ==
--- NOTE | 2024-04-18 12:05 | DI.RAD_ITS ---
Exam(s) XR FOOT RT COMPLETE EXAM: XR FOOT RT COMPLETE CLINICAL HISTORY: Pain right fifth MPJ, nondisplaced fx of 5th metatarsal bone, rt, S92.354A. TECHNIQUE: 2D digital imaging was performed. Three views. COMPARISON: CR XR FOOT LT COMPLETE from 03/28/2024 CR XR FOOT RT COMPLETE from 03/28/2024 FINDINGS: BONES: No acute fracture is present. No evidence of stress fracture. Mild spurring at the 5th metat arsal head. No bony destructive lesion is seen. Small heel spurs. JOINTS: No dislocation present. Minimal degenerative changes. SOFT TISSUE: Normal. IMPRESSION: No acute abnormality. DATA REPOSITORY: RADIATION DOSE DELIVERED:
== END 2024-04-18 02:55 ==
LOC: DI 02:35
PROVIDERS: PCP Family Medicine; Visit Provider Podiatrist
DX: M79.671 Pain in right foot (principal)
CPT/HCPCS: 73630

== ENCOUNTER 2024-04-26 22:51 | Outpatient (REF) | payer MEDICARE, MEDICAID, SELFPAY ==
[2024-04-28 11:40] LABS: Varicella Zoster DNA Result Negative (Negative)
== END 2024-04-26 22:52 | disposition home or self-care (01) ==
LOC: NCHCN 22:51
PROVIDERS: PCP Family Medicine; Visit Provider Family Medicine
DX: B02.9 Zoster without complications (principal)
CPT/HCPCS: 87798

== ENCOUNTER → 2024-05-30 13:24 | Outpatient (BNVA) | payer MEDICARE, MEDICAID, SELFPAY | PROVIDERS: PCP Family Medicine; Referring Provider Family Medicine; Visit Provider Podiatrist | DX: M79.671 Pain in right foot (principal); M79.672 Pain in left foot; L60.0 Ingrowing nail; E53.8 Deficiency of other specified B group vitamins; D69.6 Thrombocytopenia, unspecified; E11.9 Type 2 diabetes mellitus without complications; S92.354A Nondisplaced fracture of fifth metatarsal bone, right foot, initial encounter for closed fracture; M67.01 Short Achilles tendon (acquired), right ankle; M67.02 Short Achilles tendon (acquired), left ankle; X58.XXXA Exposure to other specified factors, initial encounter | CPT/HCPCS: 20600; J0702; J1100 ==

== ENCOUNTER → 2024-07-17 09:44 | Outpatient (BNVA) | payer MEDICARE, MEDICAID, SELFPAY | PROVIDERS: PCP Family Medicine; Referring Provider Family Medicine; Visit Provider Psychiatry & Neurology Neurology | DX: G35 Multiple sclerosis (principal); G43.009 Migraine without aura, not intractable, without status migrainosus; G89.29 Other chronic pain; G62.9 Polyneuropathy, unspecified; G47.00 Insomnia, unspecified; M54.32 Sciatica, left side; G47.33 Obstructive sleep apnea (adult) (pediatric) | CPT/HCPCS: 99214 ==

== ENCOUNTER 2024-08-08 03:23 | Outpatient (CLI) | payer MEDICARE, MEDICAID, SELFPAY ==
[2024-08-08 12:43] LABS: TSH 1.25 uIU/mL (0.36-3.74)
[2024-08-21 10:37] LABS: Misc Referral (MAYO) See Comments
== END 2024-08-08 03:24 | disposition home or self-care (01) ==
LOC: LBO 03:23
PROVIDERS: PCP Family Medicine; Visit Provider Surgery
DX: E89.0 Postprocedural hypothyroidism (principal); E21.0 Primary hyperparathyroidism; E11.42 Type 2 diabetes mellitus with diabetic polyneuropathy; E53.8 Deficiency of other specified B group vitamins; D69.6 Thrombocytopenia, unspecified; R60.0 Localized edema; R20.2 Paresthesia of skin; L65.9 Nonscarring hair loss, unspecified; L60.2 Onychogryphosis; L60.3 Nail dystrophy; L60.8 Other nail disorders; L60.0 Ingrowing nail
CPT/HCPCS: 11721; 36415; 84432; 86800; 84443

== ENCOUNTER 2024-09-20 00:18 | Outpatient (CLI) | payer OTHER, SELFPAY ==
--- NOTE | 2024-09-20 12:04 | DI.RAD_ITS ---
Exam(s) XR LUMBAR SPINE AP, LAT EXAM: XR LUMBAR SPINE AP, LAT CLINICAL HISTORY: Low back pain Z02.71 Encounter of disability. TECHNIQUE: 2D digital imaging was performed. COMPARISON: No exams were available for comparison FINDINGS: 3 views No evidence of fracture. There is mild anterolisthesis of L4 upon L5, approximately 3 mm. This is r elated to facet arthropathy at this level. There are no pars defects. There is mild disc space narr owing at this level as well as at L5-S1 level. Other disc spaces appear unremarkable and there is no scoliosis. Sacroiliac joints appear unremarkable. IMPRESSION: Disc space narrowing as above. Also mild degenerative anterolisthesis of L4 upon L5. DATA REPOSITORY: RADIATION DOSE DELIVERED:
== END 2024-09-20 00:38 ==
LOC: DI 00:18
PROVIDERS: PCP Family Medicine; Visit Provider Pediatrics Pediatric Rheumatology
DX: Z02.71 Encounter for disability determination (principal); M51.360 Other intervertebral disc degeneration, lumbar region with discogenic back pain only
CPT/HCPCS: 72100

== ENCOUNTER → 2024-12-16 09:12 | Outpatient (BNVA) | payer MEDICARE, MEDICAID, SELFPAY | PROVIDERS: PCP Family Medicine; Referring Provider Family Medicine; Visit Provider Podiatrist | DX: E11.42 Type 2 diabetes mellitus with diabetic polyneuropathy (principal); L60.3 Nail dystrophy; B35.1 Tinea unguium; E53.8 Deficiency of other specified B group vitamins; D69.6 Thrombocytopenia, unspecified; R60.0 Localized edema; L65.9 Nonscarring hair loss, unspecified; R23.8 Other skin changes; L60.2 Onychogryphosis; L60.0 Ingrowing nail; R20.2 Paresthesia of skin | CPT/HCPCS: 11721 ==

== ENCOUNTER → 2025-01-15 10:08 | Outpatient (BNVA) | payer MEDICARE, MEDICAID, SELFPAY | PROVIDERS: PCP Family Medicine; Referring Provider Family Medicine; Visit Provider Psychiatry & Neurology Neurology | DX: G35 Multiple sclerosis (principal); G43.009 Migraine without aura, not intractable, without status migrainosus; M54.50 Low back pain, unspecified; G62.9 Polyneuropathy, unspecified; G47.00 Insomnia, unspecified | CPT/HCPCS: 99214 ==

== ENCOUNTER → 2025-02-12 12:25 | Outpatient (BNVA) | payer MEDICARE, MEDICAID, SELFPAY | PROVIDERS: PCP Family Medicine; Referring Provider Family Medicine; Visit Provider Psychiatry & Neurology Neurology | DX: G35.D Multiple sclerosis, unspecified (principal); G43.009 Migraine without aura, not intractable, without status migrainosus; M54.50 Low back pain, unspecified; G89.29 Other chronic pain; G62.9 Polyneuropathy, unspecified; G47.00 Insomnia, unspecified | CPT/HCPCS: 99213; 95909 ==

== ENCOUNTER 2025-02-28 12:14 | Outpatient (REF) | payer MEDICARE, MEDICAID, SELFPAY ==
[2025-02-28 21:34] LABS: COMMENT (LAB VIEW ONLY) 32.16 mg/dL
[2025-02-28 21:35] LABS: Microalb ug/mg Crea 110.7 ug/mg Cr
== END 2025-02-28 12:15 | disposition home or self-care (01) ==
LOC: NCHCN 12:14
PROVIDERS: PCP Family Medicine; Visit Provider Family Medicine
DX: E11.9 Type 2 diabetes mellitus without complications (principal)
CPT/HCPCS: 82043; 82570

== ENCOUNTER 2025-03-16 08:48 | Observation (INO) | payer MEDICARE, MEDICAID, SELFPAY ==
[2025-03-16] VITALS (21 sets, daily range): BP systolic 124–180; BP diastolic 66–110; PULSE 85–120; RESP 14–30; TEMP 36.4–36.8; O2SAT 93–98
--- NOTE | 2025-03-16 08:45 | RT.EKG_ITS ---
APPROVED REPORT Exam: Resting ECG Reason for Exam: dyspnea Patient Location: E HR:112 bpm ECG Measurements Heart Rate 112 AXIS CA 179 P 53 QRSd 75 QRS -48 QT 315 T 72 QTc 430 Conclusion Sinus tachycardia...rate> 99 LAD, consider left anterior fascicular block...axis(240,-40), S>R II III aVF Anterior infarct, old...Q >40mS, abnormal ST-T, V2-V5 No STEMI
--- NOTE | 2025-03-16 09:05 | W.ED.GENAD ---
Discharge Plan Disposition Patient Disposition: Home Discharge Details Clinical Impression: Dyspnea Primary Care Provider: Deepali Zuleta ED Provider: Joe Castano Home Meds and New Rx's Prescriptions: No Action ketoconazole 2 % cream 1 applic topical DAILY Qty: 120 6RF Rx Instructions: Apply to toenails once daily atorvastatin 10 mg tablet 10 mg PO DAILY albuterol 90 mcg/actuation aerosol 90 mcg inhalation Q4H PRN norethindrone acetate [Gallifrey] 5 mg tablet 5 mg PO DAILY Mounjaro 2.5 mg/0.5 mL pen injector 5 mg subcut QWEEK Rx Instructions: for 4 weeks 12/2024 hydrocortisone [Anti-Itch (HC)] 1 % cream 1 applic topical BID PRN triamcinolone acetonide 0.1 % ointment 1 applic topical 2XD chlorthalidone 25 MG tablet 25 mg PO DAILY telmisartan 40 mg tablet 40 mg PO DAILY Patient Comments: TAKE 1 TABLET BY MOUTH EVERY DAY valsartan 160 mg tablet 160 mg PO DAILY Patient Comments: TAKE 1 TABLET BY MOUTH EVERY DAY metformin 500 mg tablet extended release 24 hr 1,000 mg PO BID Patient Comments: TAKE 2 TABLETS BY MOUTH TWICE DAILY Discharge Instructions Stand Alone Forms: Portal Information HPI General Date/Time Provider Initiated Documentation: 03/16/25 08:51. HPI Narrative: MDM/Narrative: 55-year-old female past med history of MS, obesity, hypertension, presenting for dyspnea with associated cough preceded by upper respiratory symptoms. Exam notable for tachypnea, tachycardia and increased work of breathing. Patient presentation is concerning for infectious etiology such as acute viral syndrome including flu, COVID, RSV, pneumonia, PE, less likely to be ACS given lack of chest pain symptoms. As such we will obtain screening labs, provide patient with fluid resuscitation to hopefully improve hemodynamics, as well as blood cultures and empiric antibiotics due to concern for possible sepsis. ED course: Labs notable for leukocytosis, elevated lactic acid, viral testing negative chest x-ray shows no acute infiltrates. However given patient's abnormal labs, persistent tachycardia and tachypnea in the setting of respiratory symptoms will consider pneumosepsis. Case discussed with Dr. Rayo who agrees to admit the patient for further management Clinical impression: Sepsis Viral syndrome Disposition: Admit to [facility] HPI: 55-year-old female past med history of MS, obesity, hypertension, presents for evaluation of shortness of breath. Patient reports approximately 4 days ago her developed cough, sore throat and runny nose, and then 2 days later she developed the same symptoms, the past 2 days she has also noted significant chest congestion, difficulty breathing. Denies associated fever chills, vomiting, leg swelling, or chest pain. ROS: Negative besides as mentioned above Exam: Gen: A&O NAD. Obese HEENT: NCAT, EOMI, not icteric. External ears normal. No rhinorrhea. Moist mucous membranes. Neck: Supple, full range of motion, no observable masses, No meningeal sign. Lungs: Tachypnea with increased work of breathing. No adventitious lung sounds bilaterally CV: RRR, no edema. Abdomen: Soft, nondistended, No rebound tenderness. MSK: No joint swelling, no redness. Skin: No rashes, petechiae, lesions. Normal color per patient. Neuro: Normal Gait, Grossly intact. Psych: Appropriate for situation. Rhythm: Sinus tachycardia Rate: 112 [place]: Leftward axis Intervals: Normal intervals Other findings: No acute ST segment or T wave changes to suggest acute ischemia. Labs: 03/16/25 10:07 Blood Blood Culture - Pending 03/16/25 09:58 Blood Blood Culture - Pending Laboratory Tests Range/Units 03/16/25 03/16/25 03/16/25 09:04 09:20 10:20 WBC (4.4-10.8) 10^3/uL 13.50 H RBC (3.93-5.22) 10^6/uL 5.58 H Hgb (11.2-15.7) g/dL 14.5 Hct (36.0-46.0) % 45.8 MCV (80-95) fL 82 MCH (27.0-33.0) pg 26.0 L MCHC (32.0-36.0) % 31.7 L RDW (11.7-14.6) % 14.7 H Plt Count (130-400) 10^3/uL 101 L MPV (8.0-11.0) fL 14.0 H Immature Gran % % 0.6 Neutrophils % % 81.3 Lymphocytes % % 11.8 Monocytes % % 5.3 Eosinophils % % 0.7 Basophils % % 0.3 Nucleated RBC % (0.0-0.3) % 0.0 Absolute Neutrophils (1.2-6.7) 10^3/uL 10.98 H Absolute Lymphocytes (1.2-3.4) 10^3/uL 1.59 Absolute Monocytes (0.1-0.8) 10^3/uL 0.72 Absolute Eosinophils (0.0-0.7) 10^3/uL 0.09 Absolute Basophils (0.0-0.2) 10^3/uL 0.04 D-Dimer (<500) ng/mlFEU 373 VBG pH (7.31-7.41) 7.35 VBG pCO2 (41-51) mmHg 46 VBG pO2 mmHg 30 VBG HCO3 (23-28) mmol/L 26 VBG Total CO2 (24-29) mmol/L 23 L VBG O2 Saturation % 53 VBG Base Excess (-2-3) mmol/L 0 VBG Lactate (<or=2.0) mmol/L 2.7 H* Sodium (136-145) mmol/L 137 Potassium (3.5-5.1) mmol/L 4.5 Chloride (98-107) mmol/L 100 Carbon Dioxide (21.0-32.0) mmol/L 27.0 Anion Gap (3-11) mmol/L 10.0 BUN (7-18) mg/dL 12 Creatinine (0.55-1.02) mg/dL 0.9 Est GFR (CKD-EPI 2020) (mL/min/1.73m2) 75.97 Glucose (74-106) mg/dL 149 H Calcium (8.5-10.1) mg/dL 9.2 Magnesium (1.8-2.4) mg/dL 1.6 L Total Bilirubin (0.2-1.0) mg/dL 0.4 AST (15-37) U/L 13 L ALT (14-59) U/L 20 Alkaline Phosphatase (46-116) U/L 100 Troponin I (<or=51) ng/L 5 4 NT-Pro-B Natriuret Pep (<300) pg/mL 16 Total Protein (6.4-8.2) g/dL 8.1 Albumin (3.4-5.0) g/dL 3.5 Urine Color (Yellow) Urine Clarity (Clear) Urine pH (5-8) Ur Specific [place] (1.005-1.025) Urine Protein (Neg-Trace) mg/dL Urine Ketones (Negative) mg/dL Urine Blood (Negative) Urine Nitrite (Negative) Urine Bilirubin (Negative) Urine Urobilinogen (Up to 0.2) mg/dL Ur Leukocyte Esterase (Negative) Urine RBC (0-2) HPF Urine WBC (0-5) HPF Ur Epithelial Cells (Negative) HPF Urine Crystals (Negative) HPF Urine Bacteria (Negative) HPF Urine Casts (Negative) LPF Urine Mucus (Negative) Urine Other (Negative) Ur Culture Indicated? Urine Glucose (Negative) mg/dL COVID-19 Source Nasopharynx SARS-CoV-2 (PCR) (Negative) Negative Influenza Type A (PCR) (Negative) Negative Influenza Type B (PCR) (Negative) Negative RSV (PCR) (Negative) Negative Range/Units 03/16/25 03/16/25 11:51 11:55 WBC (4.4-10.8) 10^3/uL RBC (3.93-5.22) 10^6/uL Hgb (11.2-15.7) g/dL Hct (36.0-46.0) % MCV (80-95) fL MCH (27.0-33.0) pg MCHC (32.0-36.0) % RDW (11.7-14.6) % Plt Count (130-400) 10^3/uL MPV (8.0-11.0) fL Immature Gran % % Neutrophils % % Lymphocytes % % Monocytes % % Eosinophils % % Basophils % % Nucleated RBC % (0.0-0.3) % Absolute Neutrophils (1.2-6.7) 10^3/uL Absolute Lymphocytes (1.2-3.4) 10^3/uL Absolute Monocytes (0.1-0.8) 10^3/uL Absolute Eosinophils (0.0-0.7) 10^3/uL Absolute Basophils (0.0-0.2) 10^3/uL D-Dimer (<500) ng/mlFEU VBG pH (7.31-7.41) VBG pCO2 (41-51) mmHg VBG pO2 mmHg VBG HCO3 (23-28) mmol/L VBG Total CO2 (24-29) mmol/L VBG O2 Saturation % VBG Base Excess (-2-3) mmol/L VBG Lactate (<or=2.0) mmol/L Sodium (136-145) mmol/L Potassium (3.5-5.1) mmol/L Chloride (98-107) mmol/L Carbon Dioxide (21.0-32.0) mmol/L Anion Gap (3-11) mmol/L BUN (7-18) mg/dL Creatinine (0.55-1.02) mg/dL Est GFR (CKD-EPI 2020) (mL/min/1.73m2) Glucose (74-106) mg/dL Calcium (8.5-10.1) mg/dL Magnesium (1.8-2.4) mg/dL Total Bilirubin (0.2-1.0) mg/dL AST (15-37) U/L ALT (14-59) U/L Alkaline Phosphatase (46-116) U/L Troponin I (<or=51) ng/L Cancelled NT-Pro-B Natriuret Pep (<300) pg/mL Total Protein (6.4-8.2) g/dL Albumin (3.4-5.0) g/dL Urine Color (Yellow) Yellow Urine Clarity (Clear) Clear Urine pH (5-8) 7.0 Ur Specific [place] (1.005-1.025) 1.015 Urine Protein (Neg-Trace) mg/dL 30 H Urine Ketones (Negative) mg/dL Negative Urine Blood (Negative) Negative Urine Nitrite (Negative) Negative Urine Bilirubin (Negative) Negative Urine Urobilinogen (Up to 0.2) mg/dL 0.2 Ur Leukocyte Esterase (Negative) Negative Urine RBC (0-2) HPF Negative Urine WBC (0-5) HPF Negative Ur Epithelial Cells (Negative) HPF Rare Urine Crystals (Negative) HPF Negative Urine Bacteria (Negative) HPF Rare Urine Casts (Negative) LPF 0-2 Hyaline Urine Mucus (Negative) Negative Urine Other (Negative) Rare Renal Ur Culture Indicated? No Urine Glucose (Negative) mg/dL Negative COVID-19 Source SARS-CoV-2 (PCR) (Negative) Influenza Type A (PCR) (Negative) Influenza Type B (PCR) (Negative) RSV (PCR) (Negative) Radiology: Exam(s) XR CHEST 2V PA LATERAL EXAM: XR CHEST 2V PA LATERAL CLINICAL HISTORY: dyspnea TECHNIQUE: 2D digital imaging was performed of the chest. Two images were obtained. PA and lateral views were obtained. COMPARISON: CR CHEST 2 VIEWS PA,LAT from 05/23/2012 FINDINGS: MEDIASTINUM: Normal. HEART: Normal. PULMONARY VASCULATURE: Normal. LUNGS: Clear. PLEURAL SPACE: No pleural effusion or pneumothorax. BONE:Within normal limits for the patient's age. OTHER FINDINGS:Normal. IMPRESSION: No acute pulmonary findings. Related Data Home Medications Medication Instructions Recorded Confirmed chlorthalidone 25 mg tablet 25 mg PO DAILY 05/10/17 03/16/25 hydrocortisone 1 % topical cream 1 applic topical BID PRN 01/24/24 03/16/25 (Anti-Itch (hydrocortisone)) ketoconazole 2 % topical cream 1 applic topical DAILY #120 grams 03/07/24 03/16/25 albuterol 90 mcg/actuation aerosol 90 mcg inhalation Q4H PRN 06/28/24 03/16/25 inhaler atorvastatin 10 mg tablet 10 mg PO DAILY 06/28/24 03/16/25 norethindrone acetate 5 mg tablet 5 mg PO DAILY 12/09/24 03/16/25 (Gallifrey) triamcinolone acetonide 0.1 % 1 applic topical 2XD 12/24/24 03/16/25 topical ointment tirzepatide 2.5 mg/0.5 mL 5 mg subcut QWEEK 01/30/25 03/16/25 subcutaneous pen injector (Ann) metformin 500 mg tablet,extended 1,000 mg PO BID 03/16/25 03/16/25 release 24 hr telmisartan 40 mg tablet 40 mg PO DAILY 03/16/25 03/16/25 valsartan 160 mg tablet 160 mg PO DAILY 03/16/25 03/16/25 Previous Rx's Medication Instructions Recorded ketoconazole 2 % topical cream 1 applic topical DAILY #120 grams 03/07/24 Allergies Allergy/AdvReac Type Severity Reaction Status Date / Time codeine AdvReac Mild NAUSEA/VOMI Verified 03/16/25 08:54 TING General Stated Complaint: SOB TATIANNA: 3 Course Vital Signs Vital signs: Vital Signs Pulse 118 H 03/16/25 08:52 Respiratory Rate 30 H 03/16/25 08:52 Blood Pressure 180/110 H 03/16/25 08:52 Pulse Oximetry 95 03/16/25 08:52 Pulse 118 H 03/16/25 08:52 Respiratory Rate 30 H 03/16/25 08:52 Blood Pressure 180/110 H 03/16/25 08:52 Blood Pressure Position Sitting 03/16/25 08:52 Pulse Oximetry 95 03/16/25 08:52 Oxygen Delivery Method Room Air 03/16/25 08:52 Oxygen Flow Rate 0 03/16/25 08:52 Pain Level 0 03/16/25 08:52 PFSH All Active Problems (Updated 03/16/25 @ 13:16 by Joe Castano MD) Dyspnea (Acute) Arthritis of right knee (Acute) Dystrophia unguium (Acute) OM (onychomycosis) (Acute) Insomnia (Acute) Vitamin B12 deficiency (Acute) Claustrophobia (Acute) HTN (hypertension) (Chronic) Papillary thyroid carcinoma (Acute) Papillary thyroid cancer, found Jun 2017. Monitored by [facility] with yearly US. Hyperparathyroidism (Acute) Primary hyperparathyroidism with an intrathyroidal parathyroid adenoma. Diabetes type 2, controlled (Acute) Vitamin D deficiency (Acute) Morbid obesity with BMI of 60.0-69.9, adult (Acute) ITP (idiopathic thrombocytopenic purpura) (Acute) Depression (Chronic) Anxiety (Chronic) Obstructive sleep apnea (Chronic) Sciatica, left side (Acute) Achilles tendon contracture, right (Acute) Contracture of left Achilles tendon (Acute) Nondisplaced fracture of fifth metatarsal bone, right foot, initial encounter for closed fracture (Acute) Ingrown toenail (Acute) Elevated WBC count (Acute) Peripheral neuropathy (Acute) Osteoarthritis of right knee (Acute) Sensorineural hearing loss of both ears (Acute) Asymmetrical sensorineural hearing loss (Acute) Biceps tendinitis of right upper extremity (Acute) Chronic low back pain (Acute) Eczema (Acute 06/10/13) Carpal tunnel syndrome of right wrist (Acute 09/07/15) Migraine without aura and without status migrainosus, not intractable (Acute 07/09/18) Multiple sclerosis (Acute 11/05/12) Chronic nonintractable headache (Acute 11/13/17) Conductive hearing loss in left ear (Acute 11/26/15) Menorrhagia (Acute 12/08/15) Medical History Severe obesity Epidermoid cyst Non-scarring alopecia Chronic depression Microalbuminuric diabetic nephropathy FH: colon polyps Ex-smoker Auditory complaints of left ear Abscess of left ear canal Cyst epidermal inclusion cyst Thrombocytopenia Former tobacco use Carpal tunnel syndrome of right wrist ASCUS (atypical squamous cells of undetermined significance) on gynecologic Papanicolaou smear complicating , antepartum Generalized anxiety disorder Surgical History H/O parathyroidectomy S/P arthroscopic partial lateral meniscectomy S/P section S/P partial thyroidectomy R partial. Jun 2017. Family History Mother , 65 Diabetes Essential hypertension Aneurysm Father , 67 Brain cancer Sister Depression Brother Hypertension Other Cancer Social History Smoking/Tobacco Use Status: Former Tobacco Use tobacco type: cigarettes Quit Date: 11/05/16 Pack-years: 20 Smoking risk assessment performed?: Yes Alcohol Intake: never Drug use: Never Substance use type: does not use Household members: spouse current occupation: Disabled. Current gender identity: female Do you feel safe at home: Yes Do you feel safe in your relationship?: Yes
[2025-03-16 09:29] LABS: BE (Venous) 0 mmol/L (-2-3); HCO3 (Venous) 26 mmol/L (23-28); O2 Sat (Venous) 53 %; TCO2 (Venous) 23 mmol/L (24-29); pCO2 (Venous) 46 mmHg (41-51); pO2 (Venous) 30 mmHg
--- NOTE | 2025-03-16 09:30 | DI.RAD_ITS ---
Exam(s) XR CHEST 2V PA LATERAL EXAM: XR CHEST 2V PA LATERAL CLINICAL HISTORY: dyspnea TECHNIQUE: 2D digital imaging was performed of the chest. Two images were obtained. PA and lateral views were obtained. COMPARISON: CR CHEST 2 VIEWS PA,LAT from 05/23/2012 FINDINGS: MEDIASTINUM: Normal. HEART: Normal. PULMONARY VASCULATURE: Normal. LUNGS: Clear. PLEURAL SPACE: No pleural effusion or pneumothorax. BONE:Within normal limits for the patient's age. OTHER FINDINGS:Normal. IMPRESSION: No acute pulmonary findings. DATA REPOSITORY: RADIATION DOSE DELIVERED:
[2025-03-16 09:39] LABS: Abs Immature Grans 0.08 10^3/uL (0.0-0.06); HCT 45.8 % (36.0-46.0); HGB 14.5 g/dL (11.2-15.7); Immature Grans % 0.6 %; MCH 26.0 pg (27.0-33.0); MCHC 31.7 % (32.0-36.0); MCV 82 fL (80-95); MPV 14.0 fL (8.0-11.0); Platelet Count 101 10^3/uL (130-400); RBC 5.58 10^6/uL (3.93-5.22); RDW 14.7 % (11.7-14.6); RDW-SD 43.8 fL; WBC 13.50 10^3/uL (4.4-10.8)
[2025-03-16 09:49] LABS: COVID-19 PCR Negative (Negative); RSV PCR Negative (Negative)
[2025-03-16 09:54] LABS: ALT 20 U/L (14-59); AST 13 U/L (15-37); Albumin 3.5 g/dL (3.4-5.0); Alkaline Phosphatase 100 U/L (46-116); Anion Gap 10.0 mmol/L (3-11); BUN 12 mg/dL (7-18); Bilirubin, Total 0.4 mg/dL (0.2-1.0); CO2 27.0 mmol/L (21.0-32.0); Calcium 9.2 mg/dL (8.5-10.1); Chloride 100 mmol/L (98-107); Glucose 149 mg/dL (74-106); Magnesium 1.6 mg/dL (1.8-2.4); Potassium 4.5 mmol/L (3.5-5.1); Sodium 137 mmol/L (136-145); Total Protein 8.1 g/dL (6.4-8.2); Troponin I 5 ng/L (<or=51)
[2025-03-16 09:57] LABS: D-Dimer 373 ng/mlFEU (<500)
[2025-03-16] MEDS: cefTRIAXone 2 GM/50 ML BAG IVPB (10:23)
[2025-03-16] MEDS: AZITHROMYCIN 500 MG in Normal Saline 250 ML 250 MG IVPB (10:27)
[2025-03-16 10:42] LABS: Troponin I 4 ng/L (<or=51)
[2025-03-16] MEDS: Lactated Ringers 1,000 ML 1000 ML IV (11:51)
[2025-03-16 12:30] LABS: Glucose Negative (Negative)
[2025-03-16 12:36] LABS: C & S Indicated? No; RBC Negative HPF (0-2); WBC Negative HPF (0-5)
--- NOTE | 2025-03-16 12:46 | W.PM.HP.N ---
Date of service: 03/16/25 Time of Service: 11:30 Assessment and Plan Assessment and plan (1) Sepsis due to pneumonia: Status: Acute Assessment and plan: Sepsis on arrival with tachycardia, hypertension, tachypnea, elevated lactate, elevated WBC, with evidence of respiratory infection Appropriate antibiotics and fluids given in ED. No indication for steroids at this time. Admit to medical surgical floor on observation status Continue antibiotics for CAP VTE ppx: enoxaparin weight-based dosing 60 BID (2) Controlled diabetes mellitus: Status: Acute Assessment and plan: November 2024 A1C 6.4 Previously on metformin, now on tirzepatide 0.5 mg weekly No SSI at this time (3) Anxiety: Status: Chronic Assessment and plan: Previously on benzodiazepines No intervention at this time (4) Morbid obesity with BMI of 60.0-69.9, adult: Status: Acute Assessment and plan: Tirzepatide as above History of Present Illness History of Present Illness Chief Complaint: shortness of breath Narrative: Kat Vanegas is a 55 year old woman presenting March 16 with 2 days of upper respiratory illness. Her had URI symptoms 4 days prior to her ED arrival. Patient reports that she feels terrible with fatigue, malaise, persistent cough and difficulty catching her breath. Her throat was scratchy before she developed the cough. Cough is productive of greenish sputum. She has an inhaler at home, but using it provided no relief. She reports a headache that started after a few hours in the ED. No chest pain, no abdominal pain, no N/V/D. In the ED, HR 118, RR 30, BP 180/110. Neutrophilic leukocytosis 13.5. Low platelets 101, apparently chronic. Elevated glucose 149. Low magnesium 1.6. Elevated lactate 2.7. CXR unremarkable. Influenza/COVID/RSV negative. She was started on ceftriaxone and azithromycin and given LR 1L bolus. PMH: obesity BMI 67, HTN, multiple sclerosis not on tx. DM on tirzepatide, November 2024 A1C 6.4 PFSH All Active Problems (Updated 03/16/25 @ 19:09 by Giovanni Rayo MD) Controlled diabetes mellitus (Acute) Sepsis due to pneumonia (Acute) Dyspnea (Acute) Arthritis of right knee (Acute) Dystrophia unguium (Acute) OM (onychomycosis) (Acute) Insomnia (Acute) Vitamin B12 deficiency (Acute) Claustrophobia (Acute) HTN (hypertension) (Chronic) Papillary thyroid carcinoma (Acute) Papillary thyroid cancer, found Jun 2017. Monitored by [facility] End[facility] with yearly US. Hyperparathyroidism (Acute) Primary hyperparathyroidism with an intrathyroidal parathyroid adenoma. Diabetes type 2, controlled (Acute) Vitamin D deficiency (Acute) Morbid obesity with BMI of 60.0-69.9, adult (Acute) ITP (idiopathic thrombocytopenic purpura) (Acute) Depression (Chronic) Anxiety (Chronic) Obstructive sleep apnea (Chronic) Sciatica, left side (Acute) Achilles tendon contracture, right (Acute) Contracture of left Achilles tendon (Acute) Nondisplaced fracture of fifth metatarsal bone, right foot, initial encounter for closed fracture (Acute) Ingrown toenail (Acute) Elevated WBC count (Acute) Peripheral neuropathy (Acute) Osteoarthritis of right knee (Acute) Sensorineural hearing loss of both ears (Acute) Asymmetrical sensorineural hearing loss (Acute) Biceps tendinitis of right upper extremity (Acute) Chronic low back pain (Acute) Eczema (Acute 06/10/13) Carpal tunnel syndrome of right wrist (Acute 09/07/15) Migraine without aura and without status migrainosus, not intractable (Acute 11/13/17) Multiple sclerosis (Acute 11/05/12) Chronic nonintractable headache (Acute 11/13/17) Conductive hearing loss in left ear (Acute 11/26/15) Menorrhagia (Acute 12/08/15) Medical History Severe obesity Epidermoid cyst Non-scarring alopecia Chronic depression Microalbuminuric diabetic nephropathy FH: colon polyps Ex-smoker Auditory complaints of left ear Abscess of left ear canal Cyst epidermal inclusion cyst Thrombocytopenia Former tobacco use Carpal tunnel syndrome of right wrist ASCUS (atypical squamous cells of undetermined significance) on gynecologic Papanicolaou smear complicating , antepartum Generalized anxiety disorder Surgical History H/O parathyroidectomy S/P arthroscopic partial lateral meniscectomy S/P section S/P partial thyroidectomy R partial. Jun 2017. Family History Mother , 65 Diabetes Essential hypertension Aneurysm Father , 67 Brain cancer Sister Depression Brother Hypertension Other Cancer Social History Smoking/Tobacco Use Status: Former Tobacco Use tobacco type: cigarettes Quit Date: 11/05/16 Pack-years: 20 Smoking risk assessment performed?: Yes Alcohol Intake: never Drug use: Never Substance use type: does not use Household members: spouse Housing: house current occupation: Disabled. Current gender identity: female Do you feel safe at home: Yes Do you feel safe in your relationship?: Yes Meds Allergies and Home Medications Allergies Allergy/AdvReac Type Severity Reaction Status Date / Time codeine AdvReac Mild NAUSEA/VOMI Verified 03/16/25 08:54 TING Home Medications Medication Instructions Recorded Confirmed Type chlorthalidone 25 mg tablet 25 mg PO DAILY 05/10/17 03/16/25 History hydrocortisone 1 % topical cream 1 applic topical BID PRN 01/24/24 03/16/25 History (Anti-Itch (hydrocortisone)) ketoconazole 2 % topical cream 1 applic topical DAILY #120 grams 03/07/24 03/16/25 Rx albuterol 90 mcg/actuation aerosol 90 mcg inhalation Q4H PRN 06/28/24 03/16/25 History inhaler atorvastatin 10 mg tablet 10 mg PO DAILY 06/28/24 03/16/25 History norethindrone acetate 5 mg tablet 5 mg PO DAILY 12/09/24 03/16/25 History (Edilma) triamcinolone acetonide 0.1 % 1 applic topical 2XD 12/24/24 03/16/25 History topical ointment tirzepatide 2.5 mg/0.5 mL 5 mg subcut QWEEK 01/30/25 03/16/25 History subcutaneous pen injector (Ann) metformin 500 mg tablet,extended 1,000 mg PO BID 03/16/25 03/16/25 History release 24 hr telmisartan 40 mg tablet 40 mg PO DAILY 03/16/25 03/16/25 History valsartan 160 mg tablet 160 mg PO DAILY 03/16/25 03/16/25 History Exam Narrative Exam Narrative: General: This is a pleasant, obese woman in no distress HEENT: Normocephalic, atraumatic CV: Tachycardia low 100's, regular rhythm Resp: CTAB on room air Abd: soft, NTND MSK: voluntary motion x4 Neuro: awake, alert, no focal deficits Results Labs 03/16/25 09:20 03/16/25 09:20 Labs: Laboratory Results - last 24 hr 03/16/25 03/16/25 03/16/25 09:04 09:20 10:20 WBC 13.50 H RBC 5.58 H Hgb 14.5 Hct 45.8 MCV 82 MCH 26.0 L MCHC 31.7 L RDW 14.7 H Plt Count 101 L MPV 14.0 H Immature Gran % 0.6 Neutrophils % 81.3 Lymphocytes % 11.8 Monocytes % 5.3 Eosinophils % 0.7 Basophils % 0.3 Nucleated RBC % 0.0 Absolute Neutrophils 10.98 H Absolute Lymphocytes 1.59 Absolute Monocytes 0.72 Absolute Eosinophils 0.09 Absolute Basophils 0.04 D-Dimer 373 VBG pH 7.35 VBG pCO2 46 VBG pO2 30 VBG HCO3 26 VBG Total CO2 23 L VBG O2 Saturation 53 VBG Base Excess 0 VBG Lactate 2.7 H* Sodium 137 Potassium 4.5 Chloride 100 Carbon Dioxide 27.0 Anion Gap 10.0 BUN 12 Creatinine 0.9 Est GFR (CKD-EPI 2020) 75.97 Glucose 149 H Calcium 9.2 Magnesium 1.6 L Total Bilirubin 0.4 AST 13 L ALT 20 Alkaline Phosphatase 100 Troponin I 5 4 NT-Pro-B Natriuret Pep 16 Total Protein 8.1 Albumin 3.5 Urine Color Urine Clarity Urine pH Ur Specific [place] Urine Protein Urine Ketones Urine Blood Urine Nitrite Urine Bilirubin Urine Urobilinogen Ur Leukocyte Esterase Urine RBC Urine WBC Ur Epithelial Cells Urine Crystals Urine Bacteria Urine Casts Urine Mucus Urine Other Ur Culture Indicated? Urine Glucose COVID-19 Source Nasopharynx SARS-CoV-2 (PCR) Negative Influenza Type A (PCR) Negative Influenza Type B (PCR) Negative RSV (PCR) Negative 03/16/25 03/16/25 11:51 11:55 WBC RBC Hgb Hct MCV MCH MCHC RDW Plt Count MPV Immature Gran % Neutrophils % Lymphocytes % Monocytes % Eosinophils % Basophils % Nucleated RBC % Absolute Neutrophils Absolute Lymphocytes Absolute Monocytes Absolute Eosinophils Absolute Basophils D-Dimer VBG pH VBG pCO2 VBG pO2 VBG HCO3 VBG Total CO2 VBG O2 Saturation VBG Base Excess VBG Lactate Sodium Potassium Chloride Carbon Dioxide Anion Gap BUN Creatinine Est GFR (CKD-EPI 2020) Glucose Calcium Magnesium Total Bilirubin AST ALT Alkaline Phosphatase Troponin I Cancelled NT-Pro-B Natriuret Pep Total Protein Albumin Urine Color Yellow Urine Clarity Clear Urine pH 7.0 Ur Specific [place] 1.015 Urine Protein 30 H Urine Ketones Negative Urine Blood Negative Urine Nitrite Negative Urine Bilirubin Negative Urine Urobilinogen 0.2 Ur Leukocyte Esterase Negative Urine RBC Negative Urine WBC Negative Ur Epithelial Cells Rare Urine Crystals Negative Urine Bacteria Rare Urine Casts 0-2 Hyaline Urine Mucus Negative Urine Other Rare Renal Ur Culture Indicated? No Urine Glucose Negative COVID-19 Source SARS-CoV-2 (PCR) Influenza Type A (PCR) Influenza Type B (PCR) RSV (PCR) Last Vital Signs Temp 36.8 C 03/16/25 09:06 Pulse 112 H 03/16/25 11:32 Resp 28 H 03/16/25 12:10 BP 155/78 H 03/16/25 11:32 Pulse Ox 98 03/16/25 11:17 Time Spent Time spent with Patient: 40-54 minutes Time was spent: preparing to see the patient(eg.review tests), obtaining and/or reviewing separately otained hiistory, ordering medications,tests, procedures, referring, communicating with other health home care physical therapist, indepentently interpreting results, counseling the patient and care coordination
--- NOTE | 2025-03-16 16:04 | W.PC.ACHO ---
Registration Status: ADM NEETU Primary Language: Preferred Language: Icelandic ED Information & Data Chief Complaint SOB 03/16/25 11:48 Chief Complaint SOB 03/16/25 09:06 Triage Note scratchy throat then 03/16/25 08:52 progressed into a cough and SOB. Using inhaler Q4hrs w/ out any relief. Green productive cough, no fevers Medical / Surgical History (Last Reviewed 02/12/25 @ 12:10 by Mindy Garcia MD) Severe obesity Epidermoid cyst Non-scarring alopecia Chronic depression Microalbuminuric diabetic nephropathy FH: colon polyps Ex-smoker Auditory complaints of left ear Abscess of left ear canal Cyst Thrombocytopenia Former tobacco use Carpal tunnel syndrome of right wrist ASCUS (atypical squamous cells of undetermined significance) on gynecologic Papanicolaou smear complicating , antepartum Generalized anxiety disorder (Last Reviewed 02/12/25 @ 12:10 by Mindy Garcia MD) H/O parathyroidectomy S/P arthroscopic partial lateral meniscectomy S/P section S/P partial thyroidectomy Most Recent Vital Signs Temperature 36.4 C L 03/16/25 15:17 Temperature Source Temporal Artery Scan 03/16/25 15:17 Pulse 102 H 03/16/25 15:17 Pulse Rhythm Regular 03/16/25 14:36 Pulse 98 H 03/16/25 12:10 Respiratory Rate 18 03/16/25 15:17 Respiratory Effort Short of Breath, Incrsd Work of Breathing 03/16/25 14:36 Respiratory Depth Normal 03/16/25 14:36 Respiratory Pattern Normal 03/16/25 14:36 Blood Pressure 148/77 H 03/16/25 15:17 Blood Pressure Mean 100 03/16/25 15:17 Blood Pressure Position Sitting 03/16/25 08:52 Pulse Oximetry 94 03/16/25 15:17 Oxygen Delivery Method Room Air 03/16/25 15:17 Oxygen Flow Rate 0 03/16/25 15:17 Pain Level 6 03/16/25 14:36 Allergies codeine Adverse Reaction (Mild, Verified 03/16/25 08:54) NAUSEA/VOMITING IV IV Catheter Type [Right Saline Lock Forearm] IV Catheter Gauge [Right 18 Forearm] Diet Orders Category Date Time Status Heart Healthy Eating [DIET] Nutrition 03/16/25 Lunch Active Diagnostics 11/09/25 11/09/25 11/09/25 Range/Units 11:55 11:51 10:20 WBC (4.4-10.8) 10^3/uL RBC (3.93-5.22) 10^6/uL Hgb (11.2-15.7) g/dL Hct (36.0-46.0) % MCV (80-95) fL MCH (27.0-33.0) pg MCHC (32.0-36.0) % RDW (11.7-14.6) % Plt Count (130-400) 10^3/uL MPV (8.0-11.0) fL Immature Gran % % Neutrophils % % Lymphocytes % % Monocytes % % Eosinophils % % Basophils % % Nucleated RBC % (0.0-0.3) % Absolute Neutrophils (1.2-6.7) 10^3/uL Absolute Lymphocytes (1.2-3.4) 10^3/uL Absolute Monocytes (0.1-0.8) 10^3/uL Absolute Eosinophils (0.0-0.7) 10^3/uL Absolute Basophils (0.0-0.2) 10^3/uL D-Dimer (<500) ng/mlFEU VBG pH (7.31-7.41) VBG pCO2 (41-51) mmHg VBG pO2 mmHg VBG HCO3 (23-28) mmol/L VBG Total CO2 (24-29) mmol/L VBG O2 Saturation % VBG Base Excess (-2-3) mmol/L VBG Lactate (<or=2.0) mmol/L Sodium (136-145) mmol/L Potassium (3.5-5.1) mmol/L Chloride (98-107) mmol/L Carbon Dioxide (21.0-32.0) mmol/L Anion Gap (3-11) mmol/L BUN (7-18) mg/dL Creatinine (0.55-1.02) mg/dL Est GFR (CKD-EPI 2020) (mL/min/1.73m2) Glucose (74-106) mg/dL Calcium (8.5-10.1) mg/dL Magnesium (1.8-2.4) mg/dL Total Bilirubin (0.2-1.0) mg/dL AST (15-37) U/L ALT (14-59) U/L Alkaline Phosphatase (46-116) U/L Troponin I Cancelled 4 (<or=51) ng/L NT-Pro-B Natriuret Pep (<300) pg/mL Total Protein (6.4-8.2) g/dL Albumin (3.4-5.0) g/dL Urine Color Yellow (Yellow) Urine Clarity Clear (Clear) Urine pH 7.0 (5-8) Ur Specific [place] 1.015 (1.005-1.025) Urine Protein 30 H (Neg-Trace) mg/dL Urine Ketones Negative (Negative) mg/dL Urine Blood Negative (Negative) Urine Nitrite Negative (Negative) Urine Bilirubin Negative (Negative) Urine Urobilinogen 0.2 (Up to 0.2) mg/dL Ur Leukocyte Esterase Negative (Negative) Urine RBC Negative (0-2) HPF Urine WBC Negative (0-5) HPF Ur Epithelial Cells Rare (Negative) HPF Urine Crystals Negative (Negative) HPF Urine Bacteria Rare (Negative) HPF Urine Casts 0-2 Hyaline (Negative) LPF Urine Mucus Negative (Negative) Urine Other Rare Renal (Negative) Ur Culture Indicated? No Urine Glucose Negative (Negative) mg/dL COVID-19 Source SARS-CoV-2 (PCR) (Negative) Influenza Type A (PCR) (Negative) Influenza Type B (PCR) (Negative) RSV (PCR) (Negative) 03/16/25 03/16/25 Range/Units 09:20 09:04 WBC 13.50 H (4.4-10.8) 10^3/uL RBC 5.58 H (3.93-5.22) 10^6/uL Hgb 14.5 (11.2-15.7) g/dL Hct 45.8 (36.0-46.0) % MCV 82 (80-95) fL MCH 26.0 L (27.0-33.0) pg MCHC 31.7 L (32.0-36.0) % RDW 14.7 H (11.7-14.6) % Plt Count 101 L (130-400) 10^3/uL MPV 14.0 H (8.0-11.0) fL Immature Gran % 0.6 % Neutrophils % 81.3 % Lymphocytes % 11.8 % Monocytes % 5.3 % Eosinophils % 0.7 % Basophils % 0.3 % Nucleated RBC % 0.0 (0.0-0.3) % Absolute Neutrophils 10.98 H (1.2-6.7) 10^3/uL Absolute Lymphocytes 1.59 (1.2-3.4) 10^3/uL Absolute Monocytes 0.72 (0.1-0.8) 10^3/uL Absolute Eosinophils 0.09 (0.0-0.7) 10^3/uL Absolute Basophils 0.04 (0.0-0.2) 10^3/uL D-Dimer 373 (<500) ng/mlFEU VBG pH 7.35 (7.31-7.41) VBG pCO2 46 (41-51) mmHg VBG pO2 30 mmHg VBG HCO3 26 (23-28) mmol/L VBG Total CO2 23 L (24-29) mmol/L VBG O2 Saturation 53 % VBG Base Excess 0 (-2-3) mmol/L VBG Lactate 2.7 H* (<or=2.0) mmol/L Sodium 137 (136-145) mmol/L Potassium 4.5 (3.5-5.1) mmol/L Chloride 100 (98-107) mmol/L Carbon Dioxide 27.0 (21.0-32.0) mmol/L Anion Gap 10.0 (3-11) mmol/L BUN 12 (7-18) mg/dL Creatinine 0.9 (0.55-1.02) mg/dL Est GFR (CKD-EPI 2020) 75.97 (mL/min/1.73m2) Glucose 149 H (74-106) mg/dL Calcium 9.2 (8.5-10.1) mg/dL Magnesium 1.6 L (1.8-2.4) mg/dL Total Bilirubin 0.4 (0.2-1.0) mg/dL AST 13 L (15-37) U/L ALT 20 (14-59) U/L Alkaline Phosphatase 100 (46-116) U/L Troponin I 5 (<or=51) ng/L NT-Pro-B Natriuret Pep 16 (<300) pg/mL Total Protein 8.1 (6.4-8.2) g/dL Albumin 3.5 (3.4-5.0) g/dL Urine Color (Yellow) Urine Clarity (Clear) Urine pH (5-8) Ur Specific [place] (1.005-1.025) Urine Protein (Neg-Trace) mg/dL Urine Ketones (Negative) mg/dL Urine Blood (Negative) Urine Nitrite (Negative) Urine Bilirubin (Negative) Urine Urobilinogen (Up to 0.2) mg/dL Ur Leukocyte Esterase (Negative) Urine RBC (0-2) HPF Urine WBC (0-5) HPF Ur Epithelial Cells (Negative) HPF Urine Crystals (Negative) HPF Urine Bacteria (Negative) HPF Urine Casts (Negative) LPF Urine Mucus (Negative) Urine Other (Negative) Ur Culture Indicated? Urine Glucose (Negative) mg/dL COVID-19 Source Nasopharynx SARS-CoV-2 (PCR) Negative (Negative) Influenza Type A (PCR) Negative (Negative) Influenza Type B (PCR) Negative (Negative) RSV (PCR) Negative (Negative) 03/16/25 10:07 Blood Culture - Pending Blood 03/16/25 09:58 Blood Culture - Pending Blood Intake and Output - 24 Hour Total 03/16/25 08:48 thru 03/16/25 16:00 Intake Total 1520 Balance 1520 Weight 155.5 kg Intake: IV 1300 Oral 220 Other: Urine Color Yellow Urine Appearance Clear Urine Odor Normal Comment Pt voided in toilet and flushed prior to this nurse visualizing amount. Falls Risk Assessment History of Falls No History 03/16/25 14:36 Contributing Factors No Factors 03/16/25 14:36 Ambulatory Aids Uses ambulatory device 03/16/25 14:36 Tubes/Lines None 03/16/25 14:36 Gait Evaluation W/no contributing factors 03/16/25 14:36 Cognition No cognitive impairment 03/16/25 11:50 Fall Total Score 03/16/25 14:36 Level of Risk Moderate Risk 03/16/25 14:36 Problems (Last Reviewed 02/12/25 @ 12:10 by Mindy Garcia MD) Dyspnea (Acute) Attestation Statement: By documenting the first initial, last name, and credentials of the reporting nurse below, both parties acknowledge that all relevant information regarding the patient handoff has been communicated, and that all questions have been addressed to ensure continuity and safety of care. Additional Patient Information/Comments: Report Received From: c/o SOB, green sputum, afebrile, 95% RA, 155/78, HR 105, RR 22, CXR shows possible PNU. ARELI Jay
[2025-03-16] MEDS: Butalbital/Acetaminophen/Caffeine 50/325/40 TAB PO ×2 (16:31→21:03)
[2025-03-16] MEDS: Enoxaparin 60 MG/0.6 ML SYR SC (21:00)
[2025-03-16] MEDS: Normal Saline Flush 10 ML SYR IVP (21:03)
[2025-03-16] MEDS: Valsartan 80 MG TAB PO (22:12)
[2025-03-17 03:19] VITALS: BP 124/68; PULSE 91; RESP 18; TEMP 36.5; O2SAT 96
[2025-03-17 03:29] VITALS: PULSE 92; RESP 15; O2SAT 94
[2025-03-17] MEDS: Albuterol/Ipratropium 3 ML UPD VIAL UPD (03:29)
[2025-03-17 07:00] LABS: Abs Immature Grans 0.09 10^3/uL (0.0-0.06); HCT 41.8 % (36.0-46.0); HGB 13.3 g/dL (11.2-15.7); Immature Grans % 0.8 %; MCH 25.9 pg (27.0-33.0); MCHC 31.8 % (32.0-36.0); MCV 82 fL (80-95); MPV 14.5 fL (8.0-11.0); Platelet Count 105 10^3/uL (130-400); RBC 5.13 10^6/uL (3.93-5.22); RDW 14.6 % (11.7-14.6); RDW-SD 43.9 fL; WBC 11.47 10^3/uL (4.4-10.8)
[2025-03-17 07:13] LABS: ALT 20 U/L (14-59); AST 14 U/L (15-37); Albumin 3.2 g/dL (3.4-5.0); Alkaline Phosphatase 92 U/L (46-116); Anion Gap 11.0 mmol/L (3-11); BUN 10 mg/dL (7-18); Bilirubin, Total 0.3 mg/dL (0.2-1.0); CO2 28.0 mmol/L (21.0-32.0); Calcium 8.6 mg/dL (8.5-10.1); Chloride 96 mmol/L (98-107); Glucose 200 mg/dL (74-106); Magnesium 1.4 mg/dL (1.8-2.4); Potassium 4.2 mmol/L (3.5-5.1); Sodium 135 mmol/L (136-145); Total Protein 7.5 g/dL (6.4-8.2)
[2025-03-17 07:49] VITALS: BP 123/63; PULSE 88; RESP 16; TEMP 36.7; O2SAT 94
--- NOTE | 2025-03-17 08:13 | PDOC.CMIN ---
Date of service: 03/17/25 Time of Service: 08:13 Care Management Initial Assmt Initial Assessment Reason for Hospitalization: Pneumonia Advance Directives Advance Directives: Do you have an Advance Directive: N 02/12/25, 12:25 AD On File at [facility]: N 02/12/25, 12:25 Date Asked 03/16/25 03/16/25, 08:54 AD Date Reviewed COLST On File at [facility] COLST Date Scanned Code Status Resuscitation Status Full Code Care Team Visit Care Team Role Provider Type Deepali Zuleta MD Primary Care Provider [facility] STAFF PHYSICIAN Betsy Marino RDN, [facility] COUNTYES Other Providers CAMPUS EXECUTIVE DIRECTOR InPatient Vimal Contreras Other Providers OTHER Joseph Shore RDN Other Providers CAMPUS EXECUTIVE DIRECTOR Joe Castano MD Emergency Provider [facility] STAFF PHYSICIAN Giovanni Rayo MD Admit Provider [facility] STAFF PHYSICIAN Attending Provider Social Determinants of Health Screening Social Determinants of health last assessed in clinic: 03/16/25 Will the Patient Participate in the Screening?: Yes Do you worry about having a steady place to live?: no Problems where you live: no known problems In the past 12 months, have you had to go without electric, gas, oil or water in your home?: no Has lack of transportation kept you from medical appointments or from doing things needed for daily living?: no Has anyone in your life made you feel unsafe or unsupported?: no How hard is it for you to pay for the very basics like food, housing, medical care, and heating? Would you say it is:: Not hard at all Do you want help finding or keeping work or a job?: I do not need or want help If for any reason you need help with day-to-day activities such as bathing, preparing meals, shopping, managing finances, etc., do you get the help you need?: I get all the help I need How often do you feel lonely or isolated from those around you?: Never Do you speak a language other than Korean at home?: No Does the patient want assistance with any of the above?: No PFSH All Active Problems (Updated 03/16/25 @ 19:09 by Giovanni Rayo MD) Controlled diabetes mellitus (Acute) Sepsis due to pneumonia (Acute) Dyspnea (Acute) Arthritis of right knee (Acute) Dystrophia unguium (Acute) OM (onychomycosis) (Acute) Insomnia (Acute) Vitamin B12 deficiency (Acute) Claustrophobia (Acute) HTN (hypertension) (Chronic) Papillary thyroid carcinoma (Acute) Papillary thyroid cancer, found Jun 2017. Monitored by [facility] with yearly US. Hyperparathyroidism (Acute) Primary hyperparathyroidism with an intrathyroidal parathyroid adenoma. Diabetes type 2, controlled (Acute) Vitamin D deficiency (Acute) Morbid obesity with BMI of 60.0-69.9, adult (Acute) ITP (idiopathic thrombocytopenic purpura) (Acute) Depression (Chronic) Anxiety (Chronic) Obstructive sleep apnea (Chronic) Sciatica, left side (Acute) Achilles tendon contracture, right (Acute) Contracture of left Achilles tendon (Acute) Nondisplaced fracture of fifth metatarsal bone, right foot, initial encounter for closed fracture (Acute) Ingrown toenail (Acute) Elevated WBC count (Acute) Peripheral neuropathy (Acute) Osteoarthritis of right knee (Acute) Sensorineural hearing loss of both ears (Acute) Asymmetrical sensorineural hearing loss (Acute) Biceps tendinitis of right upper extremity (Acute) Chronic low back pain (Acute) Eczema (Acute 06/10/13) Carpal tunnel syndrome of right wrist (Acute 09/07/15) Migraine without aura and without status migrainosus, not intractable (Acute 11/13/17) Multiple sclerosis (Acute 11/05/12) Chronic nonintractable headache (Acute 11/13/17) Conductive hearing loss in left ear (Acute 11/26/15) Menorrhagia (Acute 12/08/15) Medical History Severe obesity Epidermoid cyst Non-scarring alopecia Chronic depression Microalbuminuric diabetic nephropathy FH: colon polyps Ex-smoker Auditory complaints of left ear Abscess of left ear canal Cyst epidermal inclusion cyst Thrombocytopenia Former tobacco use Carpal tunnel syndrome of right wrist ASCUS (atypical squamous cells of undetermined significance) on gynecologic Papanicolaou smear complicating , antepartum Generalized anxiety disorder Surgical History H/O parathyroidectomy S/P arthroscopic partial lateral meniscectomy S/P section S/P partial thyroidectomy R partial. Jun 2017. Family History Mother , 65 Diabetes Essential hypertension Aneurysm Father , 67 Brain cancer Sister Depression Brother Hypertension Other Cancer Social History Smoking/Tobacco Use Status: Former Tobacco Use tobacco type: cigarettes Quit Date: 11/05/16 Pack-years: 20 Smoking risk assessment performed?: Yes Alcohol Intake: never Drug use: Never Substance use type: does not use Household members: spouse Housing: house current occupation: Disabled. Current gender identity: female Do you feel safe at home: Yes Do you feel safe in your relationship?: Yes
--- NOTE | 2025-03-17 09:15 | DSE_ITS ---
Date of service: 03/17/25 Time of Service: 08:00 DS: Diagnosis Discharge Diagnosis (1) Sepsis due to pneumonia: Status: Resolved (2) Controlled diabetes mellitus: Status: Chronic (3) Anxiety: Status: Chronic (4) Morbid obesity with BMI of 60.0-69.9, adult: Status: Acute Discharge Plan Disposition Patient Disposition: Home Condition: Improving Discharge Details Reason For Visit: Pneumonia Admit Date/Time: 03/16/25 11:47 Admit Provider: Giovanni Rayo Attending Provider: Giovanni Rayo Primary Care Provider: Deepali Zuleta Hospital Course Hospital Course: Kat Vanegas is a 55 year old woman presenting February 13 with shortness of breath, found to meet sepsis criteria due to pneumonia. She has been on room air since arrival. Likely viral, not needing to continue antibiotics. She improved overnight and is now safe to discharge home. Home Meds and New Rx's Prescriptions: Continued ketoconazole 2 % cream 1 applic topical DAILY Qty: 120 6RF Rx Instructions: Apply to toenails once daily atorvastatin 10 mg tablet 10 mg PO DAILY albuterol 90 mcg/actuation aerosol 90 mcg inhalation Q4H PRN norethindrone acetate [Gallifrey] 5 mg tablet 5 mg PO DAILY Mounjaro 2.5 mg/0.5 mL pen injector 5 mg subcut QWEEK Rx Instructions: for 4 weeks 12/2024 hydrocortisone [Anti-Itch (HC)] 1 % cream 1 applic topical BID PRN triamcinolone acetonide 0.1 % ointment 1 applic topical 2XD chlorthalidone 25 MG tablet 25 mg PO DAILY telmisartan 40 mg tablet 40 mg PO DAILY Patient Comments: TAKE 1 TABLET BY MOUTH EVERY DAY metformin 500 mg tablet extended release 24 hr 1,000 mg PO BID Patient Comments: TAKE 2 TABLETS BY MOUTH TWICE DAILY Discontinued valsartan 160 mg tablet 160 mg PO DAILY Patient Comments: TAKE 1 TABLET BY MOUTH EVERY DAY Discharge Instructions Instructions: Atypical Pneumonia (Mycoplasma and Viral) (DC) Stand Alone Forms: Portal Information Referrals: Deepali Zuleta MD [Primary Care Provider, Medicine] Referral Note: Your pcp will call to schedule a follow up, if you haven't heard from them in a few days please reach out to them to schedule Activity:: Activity as Tolerated Equipment/Supplies:: No Equipment Needed Diet:: As Tolerated Discharge Orders Discharge Orders: Discharge Order (Routine); Ordered 03/17/25 Ordered By: Giovanni Rayo Discharge Data Discharge Date/Time-TO BE ENTERED AT DEPARTURE: 03/17/25 12:18 DS: Summary Time Spent with Patient providing and/or coordinating discharge services: Less than 30 minutes Status at Discharge Functional status at discharge: independent ambulation Overall status at discharge: patient is back to baseline Mental Status: mental status grossly normal Speech and Movement: speech and movement normal Mood: congruent mood Affect: normal affect Exam Narrative Exam Narrative: General: This is a pleasant, obese woman in no distress HEENT: Normocephalic, atraumatic CV: Tachycardia low 100's, regular rhythm Resp: CTAB on room air Abd: soft, NTND MSK: voluntary motion x4 Neuro: awake, alert, no focal deficits Psych Mental Status: mental status grossly normal Speech and Movement: speech and movement normal Mood: congruent mood Affect: normal affect DS: Data Vitals/I&O Vitals and I&O: Vital Signs Temperature 36.7 C 03/17/25 07:49 Temperature Source Temporal Artery Scan 03/17/25 07:49 Pulse 88 03/17/25 07:49 Pulse Rhythm Regular 03/16/25 14:36 Pulse 98 H 03/16/25 12:10 Respiratory Rate 16 03/17/25 07:49 Respiratory Effort Short of Breath, Incrsd Work of Breathing 03/16/25 14:36 Respiratory Depth Normal 03/16/25 14:36 Respiratory Pattern Normal 03/16/25 14:36 Blood Pressure 123/63 03/17/25 07:49 Blood Pressure Mean 83 03/17/25 07:49 Blood Pressure Position Sitting 03/16/25 08:52 Pulse Oximetry 94 03/17/25 07:49 Oxygen Delivery Method Room Air 03/17/25 07:49 Oxygen Flow Rate 0 03/17/25 07:49 Pain Level 0 03/17/25 07:49 Intake & Output 03/16/25 03/16/25 03/17/25 11:59 23:59 11:59 Intake Total 2490 / 2490 300 / 300 Balance 2490 / 2490 300 / 300 Weight 155.129 kg 155.5 kg Intake: IV 1310 / 1310 Oral 1180 / 1180 300 / 300 Other: Urine Color Yellow Yellow Urine Appearance Clear Clear Urine Odor Normal None Comment Pt voids an immeasurable amount into the toilet. Pt voids an immeasurable amount into the toilet. Data Completed and Pending Pending Labs at Discharge: 03/16/25 03/16/25 03/16/25 09:04 09:20 10:20 WBC 13.50 H RBC 5.58 H Hgb 14.5 Hct 45.8 MCV 82 MCH 26.0 L MCHC 31.7 L RDW 14.7 H Plt Count 101 L MPV 14.0 H Immature Gran % 0.6 Neutrophils % 81.3 Lymphocytes % 11.8 Monocytes % 5.3 Eosinophils % 0.7 Basophils % 0.3 Nucleated RBC % 0.0 Absolute Neutrophils 10.98 H Absolute Lymphocytes 1.59 Absolute Monocytes 0.72 Absolute Eosinophils 0.09 Absolute Basophils 0.04 D-Dimer 373 VBG pH 7.35 VBG pCO2 46 VBG pO2 30 VBG HCO3 26 VBG Total CO2 23 L VBG O2 Saturation 53 VBG Base Excess 0 VBG Lactate 2.7 H* Sodium 137 Potassium 4.5 Chloride 100 Carbon Dioxide 27.0 Anion Gap 10.0 BUN 12 Creatinine 0.9 Est GFR (CKD-EPI 2020) 75.97 Glucose 149 H Calcium 9.2 Magnesium 1.6 L Total Bilirubin 0.4 AST 13 L ALT 20 Alkaline Phosphatase 100 Troponin I 5 4 NT-Pro-B Natriuret Pep 16 Total Protein 8.1 Albumin 3.5 Urine Color Urine Clarity Urine pH Ur Specific [place] Urine Protein Urine Ketones Urine Blood Urine Nitrite Urine Bilirubin Urine Urobilinogen Ur Leukocyte Esterase Urine RBC Urine WBC Ur Epithelial Cells Urine Crystals Urine Bacteria Urine Casts Urine Mucus Urine Other Ur Culture Indicated? Urine Glucose COVID-19 Source Nasopharynx SARS-CoV-2 (PCR) Negative Influenza Type A (PCR) Negative Influenza Type B (PCR) Negative RSV (PCR) Negative 03/16/25 03/16/25 03/17/25 11:51 11:55 06:22 WBC 11.47 H RBC 5.13 Hgb 13.3 Hct 41.8 MCV 82 MCH 25.9 L MCHC 31.8 L RDW 14.6 Plt Count 105 L MPV 14.5 H Immature Gran % 0.8 Neutrophils % 77.6 Lymphocytes % 13.8 Monocytes % 6.6 Eosinophils % 0.9 Basophils % 0.3 Nucleated RBC % 0.0 Absolute Neutrophils 8.90 H Absolute Lymphocytes 1.58 Absolute Monocytes 0.76 Absolute Eosinophils 0.10 Absolute Basophils 0.03 D-Dimer VBG pH VBG pCO2 VBG pO2 VBG HCO3 VBG Total CO2 VBG O2 Saturation VBG Base Excess VBG Lactate Sodium 135 L Potassium 4.2 Chloride 96 L Carbon Dioxide 28.0 Anion Gap 11.0 BUN 10 Creatinine 0.9 Est GFR (CKD-EPI 2020) 75.97 Glucose 200 H Calcium 8.6 Magnesium 1.4 L Total Bilirubin 0.3 AST 14 L ALT 20 Alkaline Phosphatase 92 Troponin I Cancelled NT-Pro-B Natriuret Pep Total Protein 7.5 Albumin 3.2 L Urine Color Yellow Urine Clarity Clear Urine pH 7.0 Ur Specific [place] 1.015 Urine Protein 30 H Urine Ketones Negative Urine Blood Negative Urine Nitrite Negative Urine Bilirubin Negative Urine Urobilinogen 0.2 Ur Leukocyte Esterase Negative Urine RBC Negative Urine WBC Negative Ur Epithelial Cells Rare Urine Crystals Negative Urine Bacteria Rare Urine Casts 0-2 Hyaline Urine Mucus Negative Urine Other Rare Renal Ur Culture Indicated? No Urine Glucose Negative COVID-19 Source SARS-CoV-2 (PCR) Influenza Type A (PCR) Influenza Type B (PCR) RSV (PCR) Preliminary micro results at discharge 03/16/25 10:07 Blood Blood Culture - Pending 03/16/25 09:58 Blood Blood Culture - Pending [facility] All Active Problems (Updated 03/20/25 @ 13:02 by Giovanni Rayo MD) Controlled diabetes mellitus (Chronic) Arthritis of right knee (Acute) Dystrophia unguium (Acute) OM (onychomycosis) (Acute) Insomnia (Acute) Vitamin B12 deficiency (Acute) Claustrophobia (Acute) HTN (hypertension) (Chronic) Papillary thyroid carcinoma (Acute) Papillary thyroid cancer, found Jun 2017. Mon[place] by [facility] [place] [facility] [place] with [place]. Hyperparathyroidism (Acute) Primary hyperparathyroidism with an intrathyroidal parathyroid adenoma. Diabetes type 2, controlled (Acute) Vitamin D deficiency (Acute) Morbid obesity with BMI of 60.0-69.9, adult (Acute) ITP (idiopathic thrombocytopenic purpura) (Acute) Depression (Chronic) Anxiety (Chronic) Obstructive sleep apnea (Chronic) Sciatica, left side (Acute) Achilles tendon contracture, right (Acute) Contracture of left Achilles tendon (Acute) Nondisplaced fracture of fifth metatarsal bone, right foot, initial encounter for closed fracture (Acute) Ingrown toenail (Acute) Elevated WBC count (Acute) Peripheral neuropathy (Acute) Osteoarthritis of right knee (Acute) Sensorineural hearing loss of both ears (Acute) Asymmetrical sensorineural hearing loss (Acute) Biceps tendinitis of right upper extremity (Acute) Chronic low back pain (Acute) Eczema (Acute 06/10/13) Carpal tunnel syndrome of right wrist (Acute 09/07/15) Migraine without aura and without status migrainosus, not intractable (Acute 11/13/17) Multiple sclerosis (Acute 11/05/12) Chronic nonintractable headache (Acute 11/13/17) Conductive hearing loss in left ear (Acute 11/26/15) Menorrhagia (Acute 12/08/15) Medical History Severe obesity Epidermoid cyst Non-scarring alopecia Chronic depression Microalbuminuric diabetic nephropathy FH: colon polyps Ex-smoker Auditory complaints of left ear Abscess of left ear canal Cyst epidermal inclusion cyst Thrombocytopenia Former tobacco use Carpal tunnel syndrome of right wrist ASCUS (atypical squamous cells of undetermined significance) on gynecologic Papanicolaou smear complicating , antepartum Generalized anxiety disorder Surgical History H/O parathyroidectomy S/P arthroscopic partial lateral meniscectomy S/P section S/P partial thyroidectomy R partial. Jun 2017. Family History Mother , 65 Diabetes Essential hypertension Aneurysm Father , 67 Brain cancer Sister Depression Brother Hypertension Other Cancer Social History Smoking/Tobacco Use Status: Former Tobacco Use tobacco type: cigarettes Quit Date: 11/05/16 Pack-years: 20 Smoking risk assessment performed?: Yes Alcohol Intake: never Drug use: Never Substance use type: does not use Household members: spouse Housing: house current occupation: Disabled. Current gender identity: female Do you feel safe at home: Yes Do you feel safe in your relationship?: Yes Time Spent with Patient Time Spent with Patient: <45 minutes Time was spent: preparing to see the patient(eg.review tests), obtaining and/or reviewing separately otained hiistory, ordering medications,tests, procedures, referring, communicating with other health insurance healthcare consultant, indepentently interpreting results, counseling the patient and care coordination
[2025-03-17] MEDS: Chlorthalidone 25 MG TAB PO (09:52)
[2025-03-17] MEDS: Enoxaparin 60 MG/0.6 ML SYR SC (09:52)
[2025-03-17] MEDS: Atorvastatin 10 MG TAB PO (09:52)
--- NOTE | 2025-03-17 09:52 | W.PM.DS.N ---
DS: Diagnosis Discharge Diagnosis (1) Sepsis due to pneumonia: Status: Acute (2) Controlled diabetes mellitus: Status: Acute (3) Anxiety: Status: Chronic (4) Morbid obesity with BMI of 60.0-69.9, adult: Status: Acute Discharge Plan Disposition Patient Disposition: Home Condition: Improving Discharge Details Reason For Visit: Pneumonia Admit Date/Time: 03/16/25 11:47 Admit Provider: Giovanni Rayo Attending Provider: Giovanni Rayo Primary Care Provider: Deepali Zuleta [facility] Course Hospital Course: Kat Vanegas is a 55 year old woman presenting February 13 with shortness of breath, found to meet sepsis criteria due to pneumonia. She has been on room air since arrival. Likely viral, not needing to continue antibiotics. She improved overnight and is now safe to discharge home. Home Meds and New Rx's Prescriptions: Continued ketoconazole 2 % cream 1 applic topical DAILY Qty: 120 6RF Rx Instructions: Apply to toenails once daily atorvastatin 10 mg tablet 10 mg PO DAILY albuterol 90 mcg/actuation aerosol 90 mcg inhalation Q4H PRN norethindrone acetate [Gallifrey] 5 mg tablet 5 mg PO DAILY Mounjaro 2.5 mg/0.5 mL pen injector 5 mg subcut QWEEK Rx Instructions: for 4 weeks 12/2024 hydrocortisone [Anti-Itch (HC)] 1 % cream 1 applic topical BID PRN triamcinolone acetonide 0.1 % ointment 1 applic topical 2XD chlorthalidone 25 MG tablet 25 mg PO DAILY telmisartan 40 mg tablet 40 mg PO DAILY Patient Comments: TAKE 1 TABLET BY MOUTH EVERY DAY metformin 500 mg tablet extended release 24 hr 1,000 mg PO BID Patient Comments: TAKE 2 TABLETS BY MOUTH TWICE DAILY Discontinued valsartan 160 mg tablet 160 mg PO DAILY Patient Comments: TAKE 1 TABLET BY MOUTH EVERY DAY Discharge Instructions Instructions: Atypical Pneumonia (Mycoplasma and Viral) (DC) Stand Alone Forms: Portal Information Activity:: Activity as Tolerated Equipment/Supplies:: No Equipment Needed Diet:: As Tolerated Discharge Orders Discharge Orders: Discharge Order (Routine); Ordered 03/17/25 Ordered By: Giovanni Rayo DS: Data Vitals/I&O Vitals and I&O: Vital Signs Temperature 36.7 C 03/17/25 07:49 Temperature Source Temporal Artery Scan 03/17/25 07:49 Pulse 88 03/17/25 07:49 Pulse Rhythm Regular 03/16/25 14:36 Pulse 98 H 03/16/25 12:10 Respiratory Rate 16 03/17/25 07:49 Respiratory Effort Short of Breath, Incrsd Work of Breathing 03/16/25 14:36 Respiratory Depth Normal 03/16/25 14:36 Respiratory Pattern Normal 03/16/25 14:36 Blood Pressure 123/63 03/17/25 07:49 Blood Pressure Mean 83 03/17/25 07:49 Blood Pressure Position Sitting 03/16/25 08:52 Pulse Oximetry 94 03/17/25 07:49 Oxygen Delivery Method Room Air 03/17/25 07:49 Oxygen Flow Rate 0 03/17/25 07:49 Pain Level 0 03/17/25 07:49 Intake & Output 03/16/25 03/16/25 03/17/25 11:59 23:59 11:59 Intake Total 2490 / 2490 300 / 300 Balance 2490 / 2490 300 / 300 Weight 155.129 kg 155.5 kg Intake: IV 1310 / 1310 Oral 1180 / 1180 300 / 300 Other: Urine Color Yellow Yellow Urine Appearance Clear Clear Urine Odor Normal None Comment Pt voids an immeasurable amount into the toilet. Pt voids an immeasurable amount into the toilet. Data Completed and Pending Pending Labs at Discharge: 03/16/25 03/16/25 03/16/25 09:04 09:20 10:20 WBC 13.50 H RBC 5.58 H Hgb 14.5 Hct 45.8 MCV 82 MCH 26.0 L MCHC 31.7 L RDW 14.7 H Plt Count 101 L MPV 14.0 H Immature Gran % 0.6 Neutrophils % 81.3 Lymphocytes % 11.8 Monocytes % 5.3 Eosinophils % 0.7 Basophils % 0.3 Nucleated RBC % 0.0 Absolute Neutrophils 10.98 H Absolute Lymphocytes 1.59 Absolute Monocytes 0.72 Absolute Eosinophils 0.09 Absolute Basophils 0.04 D-Dimer 373 VBG pH 7.35 VBG pCO2 46 VBG pO2 30 VBG HCO3 26 VBG Total CO2 23 L VBG O2 Saturation 53 VBG Base Excess 0 VBG Lactate 2.7 H* Sodium 137 Potassium 4.5 Chloride 100 Carbon Dioxide 27.0 Anion Gap 10.0 BUN 12 Creatinine 0.9 Est GFR (CKD-EPI 2020) 75.97 Glucose 149 H Calcium 9.2 Magnesium 1.6 L Total Bilirubin 0.4 AST 13 L ALT 20 Alkaline Phosphatase 100 Troponin I 5 4 NT-Pro-B Natriuret Pep 16 Total Protein 8.1 Albumin 3.5 Urine Color Urine Clarity Urine pH Ur Specific [place] Urine Protein Urine Ketones Urine Blood Urine Nitrite Urine Bilirubin Urine Urobilinogen Ur Leukocyte Esterase Urine RBC Urine WBC Ur Epithelial Cells Urine Crystals Urine Bacteria Urine Casts Urine Mucus Urine Other Ur Culture Indicated? Urine Glucose COVID-19 Source Nasopharynx SARS-CoV-2 (PCR) Negative Influenza Type A (PCR) Negative Influenza Type B (PCR) Negative RSV (PCR) Negative 03/16/25 03/16/25 03/17/25 11:51 11:55 06:22 WBC 11.47 H RBC 5.13 Hgb 13.3 Hct 41.8 MCV 82 MCH 25.9 L MCHC 31.8 L RDW 14.6 Plt Count 105 L MPV 14.5 H Immature Gran % 0.8 Neutrophils % 77.6 Lymphocytes % 13.8 Monocytes % 6.6 Eosinophils % 0.9 Basophils % 0.3 Nucleated RBC % 0.0 Absolute Neutrophils 8.90 H Absolute Lymphocytes 1.58 Absolute Monocytes 0.76 Absolute Eosinophils 0.10 Absolute Basophils 0.03 D-Dimer VBG pH VBG pCO2 VBG pO2 VBG HCO3 VBG Total CO2 VBG O2 Saturation VBG Base Excess VBG Lactate Sodium 135 L Potassium 4.2 Chloride 96 L Carbon Dioxide 28.0 Anion Gap 11.0 BUN 10 Creatinine 0.9 Est GFR (CKD-EPI 2020) 75.97 Glucose 200 H Calcium 8.6 Magnesium 1.4 L Total Bilirubin 0.3 AST 14 L ALT 20 Alkaline Phosphatase 92 Troponin I Cancelled NT-Pro-B Natriuret Pep Total Protein 7.5 Albumin 3.2 L Urine Color Yellow Urine Clarity Clear Urine pH 7.0 Ur Specific [place] 1.015 Urine Protein 30 H Urine Ketones Negative Urine Blood Negative Urine Nitrite Negative Urine Bilirubin Negative Urine Urobilinogen 0.2 Ur Leukocyte Esterase Negative Urine RBC Negative Urine WBC Negative Ur Epithelial Cells Rare Urine Crystals Negative Urine Bacteria Rare Urine Casts 0-2 Hyaline Urine Mucus Negative Urine Other Rare Renal Ur Culture Indicated? No Urine Glucose Negative COVID-19 Source SARS-CoV-2 (PCR) Influenza Type A (PCR) Influenza Type B (PCR) RSV (PCR) Preliminary micro results at discharge 03/16/25 10:07 Blood Blood Culture - Pending 03/16/25 09:58 Blood Blood Culture - Pending [facility] All Active Problems (Updated 03/16/25 @ 19:09 by Giovanni Rayo MD) Controlled diabetes mellitus (Acute) Sepsis due to pneumonia (Acute) Dyspnea (Acute) Arthritis of right knee (Acute) Dystrophia unguium (Acute) OM (onychomycosis) (Acute) Insomnia (Acute) Vitamin B12 deficiency (Acute) Claustrophobia (Acute) HTN (hypertension) (Chronic) Papillary thyroid carcinoma (Acute) Papillary thyroid cancer, found Jun 2017. Monitored by [facility] [place] [facility] with yearly US. Hyperparathyroidism (Acute) Primary hyperparathyroidism with an intrathyroidal parathyroid adenoma. Diabetes type 2, controlled (Acute) Vitamin D deficiency (Acute) Morbid obesity with BMI of 60.0-69.9, adult (Acute) ITP (idiopathic thrombocytopenic purpura) (Acute) Depression (Chronic) Anxiety (Chronic) Obstructive sleep apnea (Chronic) Sciatica, left side (Acute) Achilles tendon contracture, right (Acute) Contracture of left Achilles tendon (Acute) Nondisplaced fracture of fifth metatarsal bone, right foot, initial encounter for closed fracture (Acute) Ingrown toenail (Acute) Elevated WBC count (Acute) Peripheral neuropathy (Acute) Osteoarthritis of right knee (Acute) Sensorineural hearing loss of both ears (Acute) Asymmetrical sensorineural hearing loss (Acute) Biceps tendinitis of right upper extremity (Acute) Chronic low back pain (Acute) Eczema (Acute 06/10/13) Carpal tunnel syndrome of right wrist (Acute 09/07/15) Migraine without aura and without status migrainosus, not intractable (Acute 11/13/17) Multiple sclerosis (Acute 11/05/12) Chronic nonintractable headache (Acute 11/13/17) Conductive hearing loss in left ear (Acute 11/26/15) Menorrhagia (Acute 12/08/15) Medical History Severe obesity Epidermoid cyst Non-scarring alopecia Chronic depression Microalbuminuric diabetic nephropathy FH: colon polyps Ex-smoker Auditory complaints of left ear Abscess of left ear canal Cyst epidermal inclusion cyst Thrombocytopenia Former tobacco use Carpal tunnel syndrome of right wrist ASCUS (atypical squamous cells of undetermined significance) on gynecologic Papanicolaou smear complicating , antepartum Generalized anxiety disorder Surgical History H/O parathyroidectomy S/P arthroscopic partial lateral meniscectomy S/P section S/P partial thyroidectomy R partial. Jun 2017. Family History Mother , 65 Diabetes Essential hypertension Aneurysm Father , 67 Brain cancer Sister Depression Brother Hypertension Other Cancer Social History Smoking/Tobacco Use Status: Former Tobacco Use tobacco type: cigarettes Quit Date: 11/05/16 Pack-years: 20 Smoking risk assessment performed?: Yes Alcohol Intake: never Drug use: Never Substance use type: does not use Household members: spouse Housing: house current occupation: Disabled. Current gender identity: female Do you feel safe at home: Yes Do you feel safe in your relationship?: Yes
[2025-03-17] MEDS: Normal Saline Flush 10 ML SYR IVP (09:53)
[2025-03-17] MEDS: MAGNESIUM SULFATE 2 GM/50 ML BAG IV_INF (10:02)
--- NOTE | 2025-03-17 10:42 | PT.INIE ---
PT Notes Visit Reasons: Pneumonia Physical Therapy Inpatient Initial Evaluation Date: 03/17/2025 Referring Doctor: Giovanni Rayo MD PT Orders: PT CONSULT: Eval and treat Precautions: Fall. Standard. Activity as tolerated. BMI 60-69, hearing loss, history of MS Patient Profile/Admitting Diagnosis: Pt is a 55-year-old female admitted to the ED with sepsis and pneumonia. Negative for flu, covid, or RSV PMHX: Controlled diabetes mellitus (Acute) Sepsis due to pneumonia (Acute) Dyspnea (Acute) Arthritis of right knee (Acute) Dystrophia unguium (Acute) OM (onychomycosis) (Acute) Insomnia (Acute) Vitamin B12 deficiency (Acute) Claustrophobia (Acute) HTN (hypertension) (Chronic) Papillary thyroid carcinoma (Acute) Papillary thyroid cancer, found Jun 2017. Monitored by [facility] Endo with yearly US.Hyperparathyroidism (Acute) Primary hyperparathyroidism with an intrathyroidal parathyroid adenoma.Diabetes type 2, controlled (Acute) Vitamin D deficiency (Acute) Morbid obesity with BMI of 60.0-69.9, adult (Acute) ITP (idiopathic thrombocytopenic purpura) (Acute) Depression (Chronic) Anxiety (Chronic) Obstructive sleep apnea (Chronic) Sciatica, left side (Acute) Achilles tendon contracture, right (Acute) Contracture of left Achilles tendon (Acute) Nondisplaced fracture of fifth metatarsal bone, right foot, initial encounter for closed fracture (Acute) Ingrown toenail (Acute) Elevated WBC count (Acute) Peripheral neuropathy (Acute) Osteoarthritis of right knee (Acute) Sensorineural hearing loss of both ears (Acute) Asymmetrical sensorineural hearing loss (Acute) Biceps tendinitis of right upper extremity (Acute) Chronic low back pain (Acute) Eczema (Acute 06/10/13) Carpal tunnel syndrome of right wrist (Acute 09/07/15) Migraine without aura and without status migrainosus, not intractable (Acute 11/13/17) Multiple sclerosis (Acute 11/05/12) Chronic nonintractable headache (Acute 11/13/17) Conductive hearing loss in left ear (Acute 11/26/15) Menorrhagia (Acute 12/08/15) Medical History Severe obesity Epidermoid cyst Non-scarring alopecia Chronic depression Microalbuminuric diabetic nephropathy FH: colon polyps Ex-smoker Auditory complaints of left ear Abscess of left ear canal Cyst epidermal inclusion cystThrombocytopenia Former tobacco use Carpal tunnel syndrome of right wrist ASCUS (atypical squamous cells of undetermined significance) on gynecologic Papanicolaou smear complicating , antepartum Generalized anxiety disorder Surgical History H/O parathyroidectomy S/P arthroscopic partial lateral meniscectomy S/P section S/P partial thyroidectomy R partial. Jun 2017. Social History/Home Situation: Pt lives in one story home with and their cats. Home has 3STE one railing on the right side going up. Independent with walking stick, assists with ADLs, Equipment Owned/DME: Walking stick. Subjective: Pt reported they are supposed to have a right TKA, and she was told it’s bone on bone at this point. Pt reported they were lightheaded walking up the stairs, and had a headache post stair, and after 5 minutes of rest. Objective: [] General Observation: Pt was started on Magnesium IV at start of session by RN Fredy Pt had difficulty breathing post ambulation Mental Status: Alert and oriented as to person, place, time, and purpose. Able to pay attention, focus, and respond appropriately. Pain: 5/10 in right knee. Vital Signs: Pre ambulation: SPO2 95% on RA, HR 88 Post ambulation: SPO2 95% on RA, HR 114 ROM: Right Upper Extremity: Shoulder Flexion limited about 120 degrees. Shoulder abduction limited about 120 degrees. Elbow flexion WFL. Wrist flexion WFL. Functional opening and closing of hand WFL. Left Upper Extremity: Shoulder Flexion limited about 120 degrees. Shoulder abduction limited about 120 degrees. Elbow flexion WFL. Wrist flexion WFL. Functional opening and closing of hand WFL. Right Lower Extremity: Hip flexion limited from adipose tissue. Hip abduction WFL. Knee flexion Limited. Ankle dorsiflexion limited to neutral. Ankle plantarflexion WFL. Left Lower Extremity: Hip flexion limited from adipose tissue. Hip abduction WFL. Knee flexion WFL. Ankle dorsiflexion limited to neutral. Ankle plantarflexion WFL. Strength: Right Upper Extremity: Grossly 4-/5 Left Upper Extremity: Grossly 4-/5 Right Lower Extremity: Hip flexors 3+/5. Hip abductors 4-/5. Knee flexors 3/5. Knee extensors 3/5. Ankle dorsiflexors 5/5. Ankle plantar flexors 5/5. Left Lower Extremity: Hip flexors 4-/5. Hip abductors 4-/5. Knee flexors 4-/5. Knee extensors 4-/5. Ankle dorsiflexors 5/5. Ankle plantar flexors 5/5. Bed Mobility/Transfers: Bed mobility : NT Sit to stand from recliner with Supervision Stand to sit with independent Stairs: two six inch steps and three four inch steps supervised with cane. step to pattern, Descending rotated body to right ot lower with LLE first Gait: Instructed patient with level surface ambulation of 135 feet requiring cane/walking stick with supervision. Mallorie decreased. Step height decreased. Step length decreased. Balance: Static Sitting: normal Dynamic Sitting: normal Static Standing: good Dynamic Standing: good Special Tests: Mobility Limitations Standardized Measure [facility] AM-PAC 6 clicks Basic Mobility Inpatient Short Form: Raw Score: 19 CMS Score: 41.77% deficit Informed Consent/Education: Patient was instructed in purpose of PT consult and plan of care. Agreeable to proceed with established PT POC to achieve personal goals. Assessment: Pt able to ambulate with walking stick and supervision. Pt was able to complete stairs. However, pt had difficulties, needing to go slower, and became lightheaded. Pt O2 didn’t drop during ambulation, but the patient was having mild dyspnea and SOB. After education on proper breathing techniques pt had less difficulties breathing. Pt has a good support system at home with her . Pt would benefit from outpatient skilled physical therapy, to address pt global weakness, rom, and decrease in activity tolerance. Patient presents with clinical signs and symptoms consistent with current/admitting diagnoses that have resulted to mobility limitations, gait instability, generalized weakness, and overall ADL decline as demonstrated by the following impairment level findings: 1. Decreased strength to quads, hip flexors, ankle dorsi flexors, and glutes major muscle groups 2. Impaired standing balance 3. Impaired activity tolerance 4. Limitation of joint range of motion in lower extremities and shoulders 5. Shortness of breath Impairments are contributing to the following functional limitations: 1. Decline in transfer skills 2. Difficulty with ambulation without assistive device and physical assistance 3. Increased completion time for mobility ADL performance 4. Increased risk for falls 5. Difficulty with managing steps alone safely Patient is assessed as a moderate complexity based on the following: History: 55-year-old female with past medical history as indicated above Examination: Demonstrable impairment in strength, balance, and mobility level with underlying impairments and functional limitations as exhibited above as well as deficit score of 41.77% utilizing the [facility] Mobility Inpatient Short Form Presentation: evolving Decision Making: moderate complexity Goals: Goals X1 week 1. Sit-Stand independent 2. Bed-Chair independent with cane/walking stick without reporting dyspnea 3. Chair-Bed independent with cane/walking stick without reporting dyspnea 4. Independent gait on level surface with use of cane/walking stick for at least 300 feet without report of dyspnea 5. Independent stair negotiation while holding onto one side rail for at least 5 steps without report of pain nor dyspnea 6. Independent with home exercise program 7. Good static and dynamic standing balance/tolerance Plan of Care/Treatment Plan: 1-2x/day, 7 days/week x 1 week. Plan of care has been reviewed with the ACCOUNTS OFFICER providing the service under Physical Therapy direction. Initiate Physical Therapy intervention for pain management as needed, strengthening, bed mobility, transfers, gait, stairs, balance training, and use of assistive device. DISCHARGE RECOMMENDATIONS: Home with outpatient PT TREATMENT CODE/TIME: [id number], [id number]/ [phone] for 28 total mins Treatment 33945 functional mobility with walking stick SBA transfers various surfaces with SBA Thank you for the opportunity to participate in the care of this patient. Written by: Tamir Castro DPTS Supervised by: Beatrice Arreaga, PT [facility] [place], [place]
--- NOTE | 2025-03-17 11:15 | PDOC.CMDIS ---
Date of service: 03/17/25 Time of Service: 11:15 LACE Index Scoring Tool Questions: Length of Stay (in days): 1 Comorbidities: Diabetes w/o Complication E.D. Visits: 1 Care Management Discharge Plan Reason for Hospitalization: Pneumonia Discharge Plan: Kat is discharged home via private vehicle with family. The patient will follow up with community providers and continue following her discharge plan of care as directed. No new services are ordered/indicated at the time of discharge. Patient/Family Education Needs: Review discharge instructions, Discuss ask me three.
[2025-03-17 11:16] VITALS: BP 118/69; PULSE 96; RESP 16; TEMP 36.6; O2SAT 95
== END 2025-03-17 12:18 | disposition home or self-care (01) ==
LOC: ER 13:16 → MS 14:51
PROVIDERS: Admitting Provider Family Medicine; Emergency Provider General Practice; PCP Family Medicine; Responsible Provider Family Medicine; Visit Provider Family Medicine
DX: A41.9 Sepsis, unspecified organism (principal); J18.9 Pneumonia, unspecified organism; E66.1 Drug-induced obesity; Z68.44 Body mass index [BMI] 60.0-69.9, adult; Z79.85 Long-term (current) use of injectable non-insulin antidiabetic drugs; Z79.84 Long term (current) use of oral hypoglycemic drugs; G35.D Multiple sclerosis, unspecified; I10 Essential (primary) hypertension; D72.829 Elevated white blood cell count, unspecified; E87.20 Acidosis, unspecified; G47.00 Insomnia, unspecified; E53.8 Deficiency of other specified B group vitamins; C73 Malignant neoplasm of thyroid gland; E11.42 Type 2 diabetes mellitus with diabetic polyneuropathy; H90.3 Sensorineural hearing loss, bilateral; M54.50 Low back pain, unspecified; G89.29 Other chronic pain; Z87.891 Personal history of nicotine dependence; F41.1 Generalized anxiety disorder; E89.0 Postprocedural hypothyroidism; E89.2 Postprocedural hypoparathyroidism
CPT/HCPCS: 00123; 36415; 80053; 82805; 87040; 87637; 93005; 96365; 96366; 96368; 97162; 97530; 99285; 71046; 81003; 81015; 83605; 83735; 83880; 84484; 85025; 85379; 93010; 94640; 94760; 99222; 99238; G0378; J0456; J0696; J1650; J3475; J7620

== ENCOUNTER → 2025-04-22 08:47 | Outpatient (BNVA) | payer MEDICARE, MEDICAID, SELFPAY | PROVIDERS: PCP Family Medicine; Referring Provider Family Medicine; Visit Provider Podiatrist | DX: L60.3 Nail dystrophy (principal); B35.1 Tinea unguium; E11.42 Type 2 diabetes mellitus with diabetic polyneuropathy; D69.6 Thrombocytopenia, unspecified; E53.8 Deficiency of other specified B group vitamins; R09.89 Other specified symptoms and signs involving the circulatory and respiratory systems; R60.0 Localized edema; L65.9 Nonscarring hair loss, unspecified; R23.4 Changes in skin texture | CPT/HCPCS: 11721 ==